=== PATIENT | female | born 2000 | race Caucasian/White ===

== ENCOUNTER 2023-11-10 11:17 | Outpatient (OUT) | payer OTHER, SELFPAY ==
--- NOTE | 2023-11-10 | CONS_ITS ---
CONSULTATION DATE: 11/10/2023 TO: [facility] in [place] CHIEF COMPLAINT: Includes severe lower back pain and bilateral hip pain and buttock pain. HISTORY OF PRESENT ILLNESS: Review of systems, past medical/surgical history were obtained and documented on the health questionnaire and is available upon request. She is a 23-year-old female who reports having had pain since her 32nd week of gestation. She reports, since that time, her pain has progressed to the point it has altered her quality of life, level of functioning and at times her sleep pattern. Increased pain with activities such as standing, walking and performing transitioning maneuvers. Climbing stair is also quite painful. She feels most comfortable in the semi-recumbent position. Denies any change in bowel and bladder habits or new sensorimotor changes in the lower extremities. CURRENT MEDICATION: Includes ibuprofen 800 mg at least daily to b.i.d. She reports this offers a marginal reduction in pain symptoms. She has been using this for at least the last four months with varying degrees of relief at best. Other medication includes Flexeril 10 mg t.i.d. EXAM: Her examination is notable for patient having no clinical radiculopathy or myelopathy involving the lower extremities. DTRs are symmetrical. She had a negative straight leg raise. She had severe pain with lumbar facet loading maneuvers, worse on the right than the left side. She also had dysesthesia and hyperesthesia along the distribution of the superior gluteal nerve with severe myofascial spasm of the gluteus medius muscle bilaterally. IMPRESSION: Our impression is patient appears to have chronic pain secondary to lumbosacral spondylosis #1, on the right side at L4-5, L5-S1, as well as superior gluteal nerve neuritis occurring bilaterally. RECOMMENDATIONS: I have recommended she consider a diagnostic right L4-5 and L5-S1 medial branch block under fluoroscopic guidance. I have discontinued her ibuprofen. I have trialed her on Mobic 15 mg daily. I have asked her to discontinue Flexeril and trial baclofen in the future. Pending her response to a change in medication, I have asked her to initiate aquatic therapy. As part of providing excellent, safe, comprehensive care, the following was completed at our patient's visit: 1. A medication reconciliation and review to ensure accurate knowledge of current/active medications, including asking our patients to inform us about any [id number] medications or herbal remedies/nutritional supplements/alternative remedies. 2. A review to specifically ensure our patients have had annual screening for: elevated body mass index (BMI, see intake chart for exact total), tobacco use, screening for depression, and screening for unhealthy alcohol use. When screening is concerning, patients are provided with education and the specific recommendation to discuss the concerning health issue and treatment options with their primary care provider. LAURA
== END 2023-11-10 11:18 | disposition home or self-care (01) ==
LOC: PM 11:19
PROVIDERS: Visit Provider Anesthesiology Pain Medicine
DX: M47.816 Spondylosis without myelopathy or radiculopathy, lumbar region (principal); G58.8 Other specified mononeuropathies
CPT/HCPCS: G0463

== ENCOUNTER 2023-11-24 08:19 | Day surgery (SDC) | payer OTHER, SELFPAY ==
[2023-11-24 08:41] VITALS: BP 124/75; PULSE 104; RESP 16; TEMP 36.2; O2SAT 98
[2023-11-24 08:46] LABS: HCG Qualitative NEGATIVE (NEGATIVE)
[2023-11-24 09:30] VITALS: BP 115/90; PULSE 85; RESP 18; O2SAT 97
[2023-11-24 09:31] VITALS: BP 115/59; PULSE 77; RESP 18; O2SAT 97
[2023-11-24] MEDS: BUPIVACAINE HCL 0.25% PF 25 MG/10 ML VIAL 3 ML INJ (09:36)
--- NOTE | 2023-11-24 10:34 | W.PM.PROCNOT ---
Date of procedure: 11/24/23 Pre-op diagnosis: Lumbar spondylosis Post-op diagnosis: same as pre-op Procedure: Right Lumbar 4/5, 5/sacral 1 medial branch block Under fluoroscopic guidance Solution injected: 2millilitersMarcaine 0.25% Anesthesia :none Immediate complications none Time out process compliant After informed consent obtained from the patient placed in the Prone proposition . area was prepped and draped in a sterile fashion using Cloraprep .25 gauge spinal needle inserted over each of the above mentioned target areas . [place] were directed towards the target under fluoroscopic guidance . after encountering each of the targets , no indication of intravascular intraneuronal or intrathecal needle tip placement. Then 0 .5 to 1 Milliliter was injected at each level. [place] removed postoperatively. patient transferred to recovery in stable condition to be discharged home after meeting criteria Anesthesia: Local Surgeon: Hugo Fofana Condition: stable
== END 2023-11-24 09:40 | disposition home or self-care (01) ==
LOC: SURGOUT 08:20
PROVIDERS: Visit Provider Anesthesiology Pain Medicine
DX: M47.816 Spondylosis without myelopathy or radiculopathy, lumbar region (principal)
CPT/HCPCS: 36415; 64493; 64494; 84703; J0665

== ENCOUNTER 2023-12-09 14:50 | Outpatient (OUT) | payer OTHER, SELFPAY ==
--- NOTE | 2023-12-09 15:16 | P.CN_ITS ---
Consult Note: HPI Data of Consult Patient: known to practice within the last 3 years Requesting Physician: Alessandra Roldan NP Primary Care Provider: Non-Staff Physician, MD Consult Narrative Reason for consult: f/u Narrative: Shamika Stratton a pleasant 23 year old female presents for evaluation of chronic low back pain. Pain 5/10 constant pain increasing with sitting standing and transitioning. Patient noticed improved ROM after right L4-5 L5-S1 facet medial branch block with 50% improvement in pain. Patient felt better but her tailbone continued to cause her pain. Upon exam today patient reports pain starting at base of lumbar spine radiating up into right shoulder blade. We discussed another cause for pain could be related to latissimus dorsi myofascial pain. Patient has found mild benefit to flexeril 10mg TID PRN, mobic 15mg daily, tylenol 500mg PRN. cc:: CC: Alessandra Roldan NP Review of Systems 2 ROS0 Status of ROS 10 or more systems reviewed and unremark able except as noted in history and below Musculoskeletal Reports: back pain PFSH PFSH Medical History (Updated 12/09/23 @ 15:22 by Alessandra Roldan NP) Depression ?F32.A - Depression, unspecified (ICD-10) Surgical History History of tonsillectomy ?Z90.89 - Acquired absence of other organs (ICD-10) Meds Home Medications and Allergies Home Medications Medication Instructions Recorded Confirmed Type acetaminophen 500 mg tablet 500 mg PO Q6H PRN pain 11/10/23 11/24/23 History (Tylenol Extra Strength) cyclobenzaprine 10 mg tablet 10 mg PO TID 11/10/23 11/24/23 History ibuprofen 800 mg tablet 800 mg PO TID PRN pain 11/10/23 11/24/23 History meloxicam 15 mg tablet 15 mg PO DAILY 11/10/23 11/24/23 History norgestimate 0.25 mg-ethinyl 1 tab PO DAILY 11/10/23 11/24/23 History estradiol 35 mcg tablet (Sprintec (28)) sertraline 50 mg tablet 50 mg PO DAILY 11/10/23 11/24/23 History Allergies Allergy/AdvReac Type Severity Reaction Status Date / Time No Known Drug Allergies Allergy Verified 11/24/23 08:39 Exam Constitutional Documenting provider has reviewed patient's vital signs: yes Common normals: no apparent distress, oriented x3, healthy appearing, alert and well nourished General appearance: cooperative HENMT Common normals: normocephalic, hearing grossly normal bilaterally and moist oral mucous membranes Head and scalp: normocephalic Eye Common normals: PERRL Pupil: PERRL Neck & C-Spine Common normals: full ROM General: normal visual inspection Chest Common normals: inspection of chest normal Respiratory Common normals: normal respiratory effort, no retractions and no use of accessory muscles Back & Pelvis Lumbar spine/lower back: normal to inspection, pain with ROM, paraspinal muscle tenderness and paraspinal muscle spasm Back image (female): 2 1. 2. Extremity Common normals: normal to inspection and full ROM Neuro Common normals: oriented x3, CN's II-XII intact bilaterally, moves all extremities, no focal motor deficits, no sensory deficits noted, deep tendon reflexes 2+ bilaterally and gait normal Sensorium/orientation: alert Motor exam: strength 5/5 throughout and no movement abnormalities noted Psych Common normals: mental status grossly normal, thought process normal, cooperative, affect normal, speech normal and activity/motor behavior normal Speech: normal speech Thought process: normal thought process Results Additional Findings Additional findings: I have checked an OARRS report on this patient today and there are no aberrancies noted in the prescribing history.?? A drug screen was completed and reviewed within the last year, and if there has not been a drug screen completed we ordered one today to monitor higher risk, state monitored pain medication use. As part of providing excellent, safe, comprehensive care, the following was completed at our patient's visit: 1. A medication reconciliation and review to ensure accurate knowledge of current/active medications, including asking our patients to inform us about any [id number] medications or herbal remedies/nutritional supplements/alternative remedies. 2. A review to specifically ensure our patients have had annual screening for: elevated body mass index (BMI), tobacco use, screening for depression, and screening for unhealthy alcohol use. When screening is concerning, patients are provided with education and the specific recommendation to discuss the concerning health issue and treatment options with their primary care provider. Assessment and Plan Assessment and Plan (1) Lumbar spondylosis: (2) Myofascial pain: (3) Strain of latissimus dorsi muscle: Plan stop flexeril start baclofen 5-10mg tabs BID-TID PRN myofascial pain start TENS unit, previously found benefit starting PT and dry needling consider TPIs in the future f/u 3 months, sooner if needed
== END 2023-12-09 14:51 | disposition home or self-care (01) ==
LOC: PM 14:51
PROVIDERS: Visit Provider Nurse Practitioner
DX: M47.816 Spondylosis without myelopathy or radiculopathy, lumbar region (principal); M79.18 Myalgia, other site; S39.012A Strain of muscle, fascia and tendon of lower back, initial encounter
CPT/HCPCS: G0463

== ENCOUNTER 2024-09-12 21:13 | Emergency (ER) | payer OTHER, MEDICAID, SELFPAY ==
[2024-09-12 21:18] VITALS: BP 126/84; PULSE 89; TEMP 36.9; O2SAT 100; BMI 41.6
--- NOTE | 2024-09-12 21:30 | ED_ITS ---
HPI HPI - Back Pain/Injury General Chief Complaint: Back Pain/Injury Stated Complaint: SEVERE BACK PAIN Time Seen by Provider: 09/12/24 21:19 Source: patient Mode of arrival: walk-in Limitations: no limitations History of Present Illness HPI Narrative: About 1.5hrs ago, the patient was reaching into a cabinet to get a sippy cup for her daughter when she felt pain along the right mid and lower back. She had chronic back pain for which she has been evaluated and treated by pain management in the past. No numbness, tingling, weakness or paralysis after this episode. She took tylenol without immediate relief. She works at [employer] and would like a work excuse. Related Data Home Medications ?Medication ?Instructions ?Recorded ?Confirmed acetaminophen 500 mg tablet 500 mg PO Q6H PRN pain 11/10/23 11/24/23 (Tylenol Extra Strength) cyclobenzaprine 10 mg tablet 10 mg PO TID 11/10/23 11/24/23 ibuprofen 800 mg tablet 800 mg PO TID PRN pain 11/10/23 11/24/23 meloxicam 15 mg tablet 15 mg PO DAILY 11/10/23 11/24/23 norgestimate 0.25 mg-ethinyl 1 tab PO DAILY 11/10/23 11/24/23 estradiol 35 mcg tablet (Sprintec (28)) sertraline 50 mg tablet 50 mg PO DAILY 11/10/23 11/24/23 Previous Rx's ?Medication ?Instructions ?Recorded methocarbamol 750 mg tablet 750 mg PO Q6H PRN pain #30 tabs 09/12/24 nabumetone 750 mg tablet 750 mg PO BID PRN pain #14 tabs 09/12/24 Allergies Allergy/AdvReac Type Severity Reaction Status Date / Time No Known Drug Allergies Allergy Verified 11/24/23 08:39 Opioid HPI Opioid Management Most Recent Opioid Data: Last Pain Scale 6 11/24/23 08:41 11/24/23 [facility] Medical History (Updated 09/12/24 @ 21:36 by Martell Haney) Depression ?F32.A - Depression, unspecified (ICD-10) Surgical History History of tonsillectomy ?Z90.89 - Acquired absence of other organs (ICD-10) Social History Little interest or pleasure in doing things: not at all Feeling down, depressed, or hopeless: not at all Exam Narrative Exam Narrative: General: Alert, no acute distress, patient resting comfortably Skin: warm, intact, no pallor noted Head: Normocephalic, atraumatic Respiratory: No acute distress. Clear lungs Abdomen: Normal bowel sounds, soft, nontender, no masses detected. No rebound, guarding, or rigidity noted. Back: inspection of the back shows no obvious deformity, no swelling, no ecchymosis, contusion, abrasion, swelling, erythema, fluctuance or induration. Tenderness noted to along the right paralumbar soft tissue lateral to the CVA and inferior to the right scapula. Straight leg raise on left is negative. Straight leg raise on right is negative. No CVA tenderness noted bilaterally. Musculoskeletal: moves both lower extremities without difficulty Neurological: AAOx4, normal sensory and motor observed. Psychiatric: Cooperative and interactive. Constitutional Vital Signs, click to edit/add: Last Vital Signs Temp 98.5 F 09/12/24 21:18 Pulse 89 09/12/24 21:18 Resp 18 09/12/24 21:18 BP 126/84 09/12/24 21:18 Pulse Ox 100 09/12/24 21:18 O2 Del Method Room Air 09/12/24 21:18 Course Vital Signs Vital signs: Vital Signs Temperature 98.5 F 09/12/24 21:18 Pulse Rate 89 09/12/24 21:18 Respiratory Rate 18 09/12/24 21:18 Blood Pressure 126/84 09/12/24 21:18 Pulse Oximetry 100 09/12/24 21:18 Oxygen Delivery Method Room Air 09/12/24 21:18 Temperature 98.5 F 09/12/24 21:18 Pulse Rate 89 09/12/24 21:18 Respiratory Rate 18 09/12/24 21:18 Blood Pressure 126/84 09/12/24 21:18 Pulse Oximetry 100 09/12/24 21:18 Oxygen Delivery Method Room Air 09/12/24 21:18 MDM - Back Pain/Injury MDM Narrative Medical decision making narrative: The patient's exam is consistent with a muscular strain of the posterolateral aspect of the lower half of her torso on the right. No need for imaging at this time She said that she no longer has any of the baclofen, Flexeril or other medications prescribed by pain management back in November and December 2023. The patient was given IM Toradol and oral Robaxin for being discharged home with prescriptions for Relafen and Robaxin to take at home. Medical Records Attestation: I reviewed the patient's medical records. Medical records narrative: November 24, 2003 the patient underwent injection of steroid by pain management physician. In December 2023 the patient saw the pain management nurse practitioner and had her Flexeril switched to baclofen. the patient suffers from chronic pain and has been evaluated by pain management numerous times over the last few years Discharge Plan Discharge Chief Complaint: Back Pain/Injury Clinical Impression: Strain of lumbar region Patient Disposition: Home, Self-Care Time of Disposition Decision: 21:36 Prescriptions / Home Meds: New nabumetone 750 mg tablet 750 mg PO BID PRN (Reason: pain) Qty: 14 0RF methocarbamol 750 mg tablet 750 mg PO Q6H PRN (Reason: pain) Qty: 30 0RF No Action cyclobenzaprine 10 mg tablet 10 mg PO TID acetaminophen [Tylenol Extra Strength] 500 mg tablet 500 mg PO Q6H PRN (Reason: pain) ibuprofen 800 mg tablet 800 mg PO TID PRN (Reason: pain) sertraline 50 mg tablet 50 mg PO DAILY norgestimate-ethinyl estradiol [Sprintec (28)] 0.25-35 mg-mcg tablet 1 tab PO DAILY meloxicam 15 mg tablet 15 mg PO DAILY Print Language: Yoruba Instructions: Low Back Strain (ED), Lower Back Exercises (ED) Referrals: Physician,Non-Staff, MD [Primary Care Provider] - 1 week
[2024-09-12] MEDS: KETOROLAC TROMETHAMINE 60 MG/2 ML VIAL IM (21:37)
[2024-09-12] MEDS: METHOCARBAMOL 500 MG TABLET PO (21:42)
== END 2024-09-12 21:51 | disposition home or self-care (01) ==
PROVIDERS: Emergency Provider Emergency Medicine; PCP Nurse Practitioner Family
DX: S39.012A Strain of muscle, fascia and tendon of lower back, initial encounter (principal); X50.1XXA Overexertion from prolonged static or awkward postures, initial encounter
CPT/HCPCS: 96372; 99284; J1885

== ENCOUNTER 2024-11-30 00:15 | Emergency (ER) | payer OTHER, SELFPAY ==
[2024-11-30 00:18] VITALS: BP 131/88; PULSE 90; TEMP 36.6; O2SAT 99; BMI 44.1
--- OUTSIDE RECORDS SUMMARY | 2024-11-30 00:22 | XMS_ITS | CCD ---
Author Organization [facility] Inform ion Partnership [facility] Care Team Providers Care Computerized [employer] Recorder Name Role Phone Rafita KIM, Marium Turk Primary Care Provider Unav ailable Unavailable Primary Care Provider Unavailabl e Luisa KIM, Jose Luis Tripp Primary Care Provider Juan SALOMON - Ashkan PARSON Primary Care Provid er ASHKAN KUNZ Primary Care Unavailable DENISSE GRIFFIN Attending Unavailabl e LUISA, JOSE LUIS TRIPP Primary Care Unavailable CHERISE SAGASTUME Attending Unavailable LUISA, JOSE LUIS TRIPP Primary Care Unavailable CHARLEEN QUINTERO Attending Unavailable LUISAJOSE LUIS Attending Unavailable LUISAJOSE LUIS Referring Unavailable LUISA, JOSE LUIS TRIPP Primary Care Unavailable LUISA, JOSE LUIS TRIPP Attending Unavailable LUISA, JOSE LUIS TRIPP Referring Unavailable LUISA, JOSE LUIS TRIPP Primary Care Unavailable LUISA, JOSE LUIS TRIPP Referring Unavailable LUISA, JOSE LUIS TRIPP Primary Care Unavailable ASHKAN KUNZ Referring Unavailable ASHKAN KUNZ Primary Care Unavailable LUISA, JOSE LUIS TRIPP Attending Unavailable LUISAJOSE LUIS Referring Unavailable LUISA, JOSE LUIS TRIPP Primary Care Unavailable LUISA, JOSE LUIS TRIPP Attending Unavailable LUISA, JOSE LUIS TRIPP Referring Unavailable LUISA, JOSE LUIS TRIPP Primary Care Unavailable LUISA, JOSE LUIS TRIPP Attending Unavailable LUISA, JOSE LUIS TRIPP Referring Unavailable LUISA, JOSE LUIS TRIPP Primary Care Unavailable Medications Current Medications Medication Drug Class(es) Dates Sig (Normalized) Sig (Original) Acetaminophen (5 sources) Start: 08-05-2023 Acetaminophen (TYLENOL PO) 08/05/2023 Active Start: 01-12-2023 End: 01-13-2023 1,000 mg, Oral, EVERY 8 HOUR S PRN, Starting on Thu01/13/23 at 1828, Until Discontinued, Other, Pain (1-10) Give in addition to any other pain medication ordered at same time for any pain indication. Maximum dose of acetaminophen is 4000mg from all sources in 24 hours. Alternate ibuprofen and acetaminophen every 4 hours. Start: 12-31-2022 acetaminophen (TYLENOL) tablet 1,000 mg baclofen 10 mg oral tablet (2 sources) gamma-Aminobutyric Acid-ergic Agonist Start: 12-10-2023 take 0.5-1 tablets by mouth three times daily as needed for muscle spasms baclofen (LIORESAL) 10 MG tablet TAKE 1/2 TO 1 (ONE-HALF TO ONE) TABLET BY MOUTH THREE TIMES DAILY NEEDED FOR SPASMS 12/10/2023 Active benzocaine 200 mg/ml / menthol 5 mg/ml topical spray (1 source) Standardized Chemical Allergen Start: 01-13-2023 apply 1 dose topically twice daily Topical, 2 TIMES DAILY, First dose on Thu01/13/23 at 2100 Apply to perineal area. Patient is capable and may self administer at bedside. cyclobenzaprine hydrochloride 10 mg oral tablet (3 sources) Muscle Relaxant Start: 09-21-2024 End: 10-01-2024 take 1 tablet by mouth three times daily as needed for muscle spasms cyclobenzaprine (FLEXERIL) 10 MG tablet Take 1 tablet by mouth 3 times daily as needed for Muscle spasms Do not drive or obtain a machinery while on this medication as it may cause drowsiness. 21 tablet 09/21/2024 10/01/2024 Active Start: 08-31-2023 End: 09-30-2023 take 1 tablet by mouth three times daily as needed for muscle spasms cyclobenzaprine (FLEXERIL) 10 MG tablet Take 1 tablet by mouth 3 times daily as needed for Muscle spasms 90 tablet 0 08/31/2023 09/30/2023 Active ethinyl estradiol 0.035 mg / norgestimate 0.25 mg oral tablet (6 sources) Progestin, Estrogen Start: 12-16-2023 take 1 tablet by mouth once daily norgestimate-ethinyl estradiol (ORTHO-CYCLEN, 28,) 0.25-35 MG-MCG per tablet Indications: Irregular menses Take 1 tablet by mouth daily 1 packet 12 12/16/2023 Active Start: 08-31-2023 take 1 tablet by oliver th once daily norgestimate-ethinyl estradiol (ORTHO-CYCLEN, 28,) 0.25-35 MG-MCG per tablet Indications: Irregular menses Take 1 tablet by mouth daily 1 packet 3 08/31/2023 Active Start: 09-16-2019 take 1 tablet by oliver th once daily norgestimate-ethinyl estradiol (ORTHO-CYCLEN, 28,) 0.25-35 MG-MCG per tablet Indications: Dysmenorrhea Take 1 tablet by mouth daily 1 packet 1 09/16/2019 Active ibuprofen 600 mg oral tablet (4 sources) Nonsteroidal Anti-inflammatory Drug Start: 09-21-2024 take 1 tablet by mouth three times daily as needed for pain ibuprofen (ADVIL;MOTRIN) 600 MG tablet Take 1 tablet by mouth 3 times daily as needed for Pain 30 tablet 09/21/2024 Active Start: 08-25-2023 take 1 tablet by oliver th every eight hours as needed for pain ibuprofen (ADVIL;MOTRIN) 800 MG tablet Take 1 tablet by mouth every 8 hours as needed for Pain 90 tablet 2 08/25/2023 Active Start: 01-13-2023 800 mg, Oral, EVERY 8 HOURS PRN, Starting on Thu01/13/23 at 1828, Until Discontinued, Pain Mild (1-3) Once tolerating PO, discontinue Toradol and begin ibuprofen 8 hours after the final dose of Toradol. Alternate ibuprofen and acetaminophen every 4 hours. lanolin 1000 mg/ml topical cream (1 source) Start: 01-13-2023 Topical, PRN, Dry Skin, nipple discomfort, Starting on Thu01/13/23 at 1828, loratadine 10 mg oral tablet (4 sources) Start: 08-26-2023 take 1 tablet by mouth once daily loratadine (CLARITIN) 10 MG tablet Take 1 tablet by mouth daily 30 tablet 08/26/2023 Active meloxicam 15 mg oral tablet (2 sources) Nonsteroidal Anti-inflammatory Drug Start: 03-23-2024 take 1 tablet by mouth once daily meloxicam (MOBIC) 15 MG tablet Take 1 tablet by mouth daily 30 tablet 03/23/2024 Active Misc. Devices (BREAST PUMP) MISC (20 sources) Start: 11-10-2022 Misc. Devices (BREAST PUMP) MISC Indications: disorder Medela double pump - plans 1 each 0 11/10/2022 Suspended Start: 11-10-2022 Misc. Devices (BREAST PUMP) MISC Indications: disorder Medela double pump - plans 1 each 0 11/10/2022 Active Start: 10-20-2022 Misc. Devices (BREAST PUMP) MISC Indications: disorder Medela double pump - plans 1 each 0 10/20/2022 Suspended Start: 10-20-2022 Misc. Devices (BREAST PUMP) MISC Indications: disorder Medela double pump - plans 1 each 0 10/20/2022 Active Vit-Fe Fumarate-FA ( 19 PO) (9 sources) Vit-Fe Fumarate-FA ( 19 PO) Take by mouth 0 Suspended Vit-Fe Fumarate-FA ( 19 PO) Take by mouth 0 Active promethazine hydrochloride 25 mg oral tablet (1 source) Phenothiazine Start: 06-05-2022 take 1 tablet by mouth every six hours as needed for nausea promethazine (PHENERGAN) 25 MG tablet Take 1 tablet by mouth every 6 hours as needed for Nausea 30 tablet 1 06/05/2022 Active sertraline 50 mg oral tablet (2 sources) Serotonin Reuptake Inhibitor Start: 07-13-2023 take 1 tablet by mouth once daily sertraline (ZOLOFT) 50 MG tablet Indications: Anxiety Take 1 tablet by mouth daily 30 tablet 1 07/13/2023 Active witch jessie 500 mg/ml medicated pad (1 source) Start: 01-13-2023 apply 1 dose topically twice daily Topical, 2 TIMES DAILY, First dose on Thu01/13/23 at 2100 Apply to perineal area. Patient is capable and may self administer at bedside. Completed/Discontinued Medications Medication Drug Class(es) Dates Sig (Normalized) Sig (Original) amoxicillin 250 mg oral capsule (2 sources) Penicillin-class Antibacterial Start: 08-17-2022 End: 08-17-2022 amoxicillin (AMOXIL) capsule 500 mg Start: 08-17-2022 End: 08-24-2022 take 1 capsule by mouth three times daily amoxicillin (AMOXIL) 500 MG capsule Take 1 capsule by mouth 3 times daily for 7 days 21 capsule 0 08/17/2022 08/24/2022 Active 2 ml butorphanol tartrate 2 mg/ml injection (1 source) Opioid Agonist/Antagonist Start: 01-12-2023 End: 01-13-2023 butorphanol (STADOL) injection 1 mg calcium chloride 0.0014 meq/ml / potassium chloride 0.004 meq/ml / sodium chloride 0.103 meq/ml / sodium lactate 0.028 meq/ml injectable solution (1 source) Start: 01-13-2023 End: 01-13-2023 lactated ringers IV soln infusion 1 ml carboprost 0.25 mg/ml injection (2 sources) Prostaglandin Analog Start: 01-12-2023 250 mcg, IntraMUSCular, PRN, Starting on Thu01/13/23 at 1828, Until Discontinued, bleeding May repeat every 15 minutes up to a cumulative maximum dose of 1000 mcg, at physician's request. diphenhydrAMINE hydrochloride 25 mg oral capsule (1 source) Histamine-1 Receptor Antagonist Start: 01-12-2023 End: 01-13-2023 diphenhydrAMINE (BENADRYL) capsule 25 mg docusate sodium 100 mg oral capsule (1 source) Start: 01-13-2023 take 100 mg by mouth twice daily as needed 100 mg, Oral, 2 TIMES DAILY PRN, Starting on Thu01/13/23 at 1828, Until Discontinued, Constipation Do not crush or break. 2 ml ketorolac tromethamine 30 mg/ml cartridge (1 source) Nonsteroidal Anti-inflammatory Drug, Cyclooxygenase Inhibitor Start: 09-21-2024 End: 09-21-2024 60 mg, IntraMUSCular, ONCE, 1 dose, On Thu09/21/24 at 2215, Do not administer for more than 5 days. 1 ml methylergonovine maleate 0.2 mg/ml injection (2 sources) Ergot Derivative Start: 01-12-2023 200 mcg, IntraMUSCular, PRN, Starting on Thu01/13/23 at 1828, Until Discontinued, Bleeding PRN for post- hemorrhage, if not hypertensive. miSOPROStol 0.1 mg oral tablet (3 sources) Prostaglandin E1 Analog Start: 01-13-2023 200 mcg, Buccal, PRN, Starting on 4/11/23 at 1828, Until Discontinued, For Post- Hemorrhage, Start: 01-13-2023 800 mcg, Recta l, PRN, 1 dose, Starting on Thu01/13/23 at 1828, Until Discontinued, Post- Hemorrhage Notify Physician prior to administration. Start: 01-12-2023 miSOPROStol (C YTOTEC) tablet 900 mcg miSOPROStol (CYTOTEC) pre-split tablet TABS 25 mcg (1 source) Start: 01-12-2023 End: 01-12-2023 miSOPROStol (CYTOTEC) pre-split tablet TABS 25 mcg 2 ml ondansetron 2 mg/ml injection (13 sources) Serotonin-3 Receptor Antagonist Start: 01-12-2023 End: 01-13-2023 ondansetron (ZOFRAN) injection 4 mg Start: 08-04-2022 End: 01-15-2023 take 1 tablet by mouth three times daily as needed for nausea ondansetron (ZOFRAN) 4 MG tablet Indications: Nausea and vomiting in Take 1 tablet by mouth 3 times daily as needed for Nausea or Vomiting 30 tablet 1 08/04/2022 01/15/2023 Discontinued (Stop Taking at Discharge) oxytocin (PITOCIN) 30 units in 500 mL infusion (2 sources) Start: 01-13-2023 End: 01-13-2023 oxytocin (PITOCIN) 30 units in 500 mL infusion Start: 01-12-2023 oxytocin (NUZHAT HENRIETTA) 30 units in 500 mL infusion 5 ml sodium chloride 9 mg/ml injection (3 sources) Start: 01-13-2023 take 1 dose intravenously twice daily 5-40 mL, IntraVENous, EVERY 12 HOURS SCHEDULED (2 times per day), First dose on Thu01/13/23 at 2100, Until Discontinued For Line Patency: Peripheral IV = 5 mL; Midline or Central Line = 10 mL/lumen. If following IV push medication, administer flush at same rate as the IV push. Flush volume is determined by type of infusion therapy being given. For non-viscous solutions use: Peripheral IV = 5 mL Midline or Central Line = 10 mL/lumen For viscous solutions (i.e. blood components, parenteral nutrition, contrast media, or after obtaining blood sample) use: Peripheral IV = 10 mL Midline or Central Line = 20 mL/lumen Start: 01-13-2023 IntraVENous, a t 5-250 mL/hr, PRN, if patient receiving piggyback infusions and maintenance fluids are not ordered OR KVO fluids to protect IV site / prevent frequent line interruptions/ long duration, Starting on Thu01/13/23 at 1828 For piggyback infusion, administer at same rate as piggyback for a total of 25 mL. Enter 25 mL into dose field and piggyback rate into rate field of order. If piggyback is infusing at a rate less than 100 mL/hr, enter 25 mL into dose field and 100 mL/hr into rate field of order. For KVO fluids, enter rate of 20 mL/hr or less into rate field of order. Start: 01-13-2023 take 5-40 mL intrave nously once as needed 5-40 mL, IntraVENous, PRN, Starting on Thu01/13/23 at 1828, Until Discontinued, Line Care, After every IV line use For Line Patency: Peripheral IV = 5 mL; Midline or Central Line = 10 mL/lumen. If following IV push medication, administer flush at same rate as the IV push. Flush volume is determined by type of infusion therapy being given. For non-viscous solutions use: Peripheral IV = 5 mL Midline or Central Line = 10 mL/lumen For viscous solutions (i.e. blood components, parenteral nutrition, contrast media, or after obtaining blood sample) use: Peripheral IV = 10 mL Midline or Central Line = 20 mL/lumen Problems Active Problems Problem Classification Problem Date Documented Da te Episodic/Chronic Anxiety disorders (2 sources) Mixed anxiety and depressive disorder; Translations: [Anxiety disorder, unspecified] Onset: 05-30-2024 05-30-2024 Chronic Cardiac dysrhythmias (2 sources) Palpitations; Translations: [Palpitations] Episodic Conditions associated with dizziness or vertigo (2 sources) Dizziness; Translations: [Dizziness and giddiness] Episodic Disorders of teeth and jaw (1 source) Toothache; Translations: [Other specified disorders of teeth and supporting structures] Episodic Menstrual disorders (1 source) Amenorrhea; Translations: [Amenorrhea, unspecified] Chronic Other complications of (1 source) Maternal obesity complicating , childbirth and the puerperium, antepartum; Translations: [Obesity complicating , first trimester] Chronic Other complications of (8 sources) Morbid obesity; Translations: [Obesity complicating , third trimester] Onset: 12-22-2022 12-22-2022 Chronic Other complications of (1 source) Complication of , childbirth and/or the puerperium; Translations: [Other specified related conditions, unspecified trimester] Episodic Other nervous system disorders (1 source) Other chronic pain; Translations: [Other chronic pain] Onset: 09-21-2024 Chronic Other nutritional; endocrine; and metabolic disorders (1 source) Morbid (severe) obesity due to excess calories; Translations: [Morbid (severe) obesity due to excess calories] Onset: 03-23-2024 Chronic Other nutritional; endocrine; and metabolic disorders (1 source) Body mass index (BMI) 45.0-49.9, adult; Translations: [Body mass index (BMI) 45.0-49.9, adult] Onset: 03-23-2024 Chronic Other upper respiratory infections (2 sources) Sore throat symptom; Translations: [Acute pharyngitis, unspecified] Episodic Residual codes; unclassified (1 source) History of syncope; Translations: [Personal history of other specified conditions] Episodic Residual codes; unclassified (1 source) Gestation period, 33 weeks; Translations: [33 weeks gestation of ] Episodic Residual codes; unclassified (1 source) Gestation period, 36 weeks; Translations: [36 weeks gestation of ] Episodic Superficial injury; contusion (1 source) Abrasion of finger; Translations: [Abrasion of unspecified finger, initial encounter] Episodic Unclassified (1 source) Low back pain, unspecified; Translations: [Low back pain, unspecified] Onset: 09-21-2024 Past or Other Problems Problem Classification Problem Date Documented Da te Episodic/Chronic Abdominal pain (7 sources) Finding of sensation of abdomen; Translations: [Unspecified abdominal pain] Onset: 01-04-2023 Episodic Administrative/social admission (1 source) Persons encountering health services in other specified circumstances; Translations: [Persons encountering health services in other specified circumstances] Onset: 03-23-2024 Episodic Early or threatened labor (20 sources) Uterine contractions present; Translations: [False labor, unspecified] Onset: 11-17-2022 Episodic Malaise and fatigue (4 sources) Fatigue; Translations: [Other fatigue] Onset: 05-30-2024 06-14-2024 Episodic Other circulatory disease (2 sources) Prehypertension; Translations: [Elevated blood-pressure reading, without diagnosis of hypertension] Onset: 05-30-2024 05-30-2024 Episodic Other connective tissue disease (2 sources) Nocturnal muscle cramp; Translations: [Cramp and spasm] Onset: 05-30-2024 05-30-2024 Episodic Other and delivery including normal (14 sources) Normal ; Translations: [Encounter for supervision of normal first , first trimester] Onset: 01-12-2023 Episodic Other skin disorders (2 sources) Senile melanoderma; Translations: [Other melanin hyperpigmentation] Onset: 05-30-2024 05-30-2024 Episodic Other skin disorders (2 sources) Xeroderma; Translations: [Xerosis cutis] Onset: 05-30-2024 05-30-2024 Episodic Residual codes; unclassified (8 sources) Gestation period, 37 weeks; Translations: [37 weeks gestation of ] Onset: 12-31-2022 Episodic Spondylosis; intervertebral disc disorders; other back problems (4 sources) Backache; Translations: [Dorsalgia, unspecified] Onset: 10-02-2023 05-30-2024 Episodic Viral infection (1 source) Viral infection, unspecified; Translations: [Viral infection, unspecified] Onset: 03-01-2024 Episodic NEGATED: Highlighted row has been ruled out!Unclassified (6 sources) No known active problems 06-12-2022 Results Test Name Value Interpretation Reference Range Facil ity XR LUMBAR SPINE (2-3 VIEWS)o n 09-21-2024 XR LUMBAR SPINE (2-3 VIEWS) EXAMINATION: 3 XRAY VIEWS OF THE LUMBAR SPINE 09/21/2024 9:51 pm COMPARISON: 10/02/2023. HISTORY: ORDERING SYSTEM PROVIDED HISTORY: acute on chronic back pain. No trauma TECHNOLOGIST PROVIDED HISTORY: acute on chronic back pain. No trauma FINDINGS: The lumbar vertebra are well aligned. There is mild disc space narrowing throughout the lower lumbar region which is unchanged. No fracture or subluxation is seen. The vertebral body height is well maintained throughout. There are sclerotic changes of the facets inferiorly with no pars defects seen. The pedicles are intact. 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 [facility] EXAMINATION: 3 XRAY VIEWS OF THE LUMBAR SPINE 09/21/2024 9:51 pm COMPARISON: 10/02/2023. HISTORY: ORDERING SYSTEM PROVIDED HISTORY: acute on chronic back pain. No trauma TECHNOLOGIST PROVIDED HISTORY: acute on chronic back pain. No trauma FINDINGS: The lumbar vertebra are well aligned. There is mild disc space narrowing throughout the lower lumbar region which is unchanged. No fracture or subluxation is seen. The vertebral body height is well maintained throughout. There are sclerotic changes of the facets inferiorly with no pars defects seen. The pedicles are intact. [facility] Gaudencio Ayala MD - 09/21/2024 EXAMINATION: 3 XRAY VIEWS OF THE LUMBAR SPINE 09/21/2024 9:51 pm COMPARISON: 10/02/2023. HISTORY: ORDERING SYSTEM PROVIDED HISTORY: acute on chronic back pain. No trauma TECHNOLOGIST PROVIDED HISTORY: acute on chronic back pain. No trauma FINDINGS: The lumbar vertebra are well aligned. There is mild disc space narrowing throughout the lower lumbar region which is unchanged. No fracture or subluxation is seen. The vertebral body height is well maintained throughout. There are sclerotic changes of the facets inferiorly with no pars defects seen. The pedicles are intact. 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 [facility] Radiology Study observation (narrative) [facility] XR SACRUM COCCYX (MIN 2 VIEW S)on 09-21-2024 XR SACRUM COCCYX (MIN 2 VIEWS) EXAMINATION: THREE XRAY VIEWS OF THE SACRUM/COCCYX 09/21/2024 9:51 pm COMPARISON: None. HISTORY: ORDERING SYSTEM PROVIDED HISTORY: acute on chronic back pain with no trauma TECHNOLOGIST PROVIDED HISTORY: acute on chronic back pain with no trauma FINDINGS: The sacrum and coccyx are intact. No fracture is seen. The sacral foramina are intact. The SI joints are unremarkable. The bones are well mineralized. No aggressive osseous lesion is seen. No erosions are seen. IMPRESSION: No abnormality seen. Interpreted by: Gaudencio Ayala MD Signed by: Gaudencio Ayala MD 09/21/24 Final result Normal [facility] XR Sacrum and Coccyx 2 Views on 09-21-2024 No abnormality seen. [facility] EXAMINATION: THREE XRAY VIEWS OF THE SACRUM/COCCYX 09/21/2024 9:51 pm COMPARISON: None. HISTORY: ORDERING SYSTEM PROVIDED HISTORY: acute on chronic back pain with no trauma TECHNOLOGIST PROVIDED HISTORY: acute on chronic back pain with no trauma FINDINGS: The sacrum and coccyx are intact. No fracture is seen. The sacral foramina are intact. The SI joints are unremarkable. The bones are well mineralized. No aggressive osseous lesion is seen. No erosions are seen. [facility] Gaudencio Ayala MD - 09/21/2024 EXAMINATION: THREE XRAY VIEWS OF THE SACRUM/COCCYX 09/21/2024 9:51 pm COMPARISON: None. HISTORY: ORDERING SYSTEM PROVIDED HISTORY: acute on chronic back pain with no trauma TECHNOLOGIST PROVIDED HISTORY: acute on chronic back pain with no trauma FINDINGS: The sacrum and coccyx are intact. No fracture is seen. The sacral foramina are intact. The SI joints are unremarkable. The bones are well mineralized. No aggressive osseous lesion is seen. No erosions are seen. IMPRESSION: No abnormality seen. [facility] Radiology Study observation (narrative) [facility] XR Sacrum and Coccyx 2 Views Ordered By: Gaudencio Ayala on 09-21-2024 Fabiola Arreaga [facility] [place] [employer] Work Phone: B12/Folate Panelon Cobalamin (Vitamin B12) [Mass/Vol] 527 pg/mL Normal 232-1245 [facility] Comment on above: Performed By: #### B 12FOL #### [address] [address] [employer]: Chriss Ortiz MD Folic Acid 18.0 ng/mL Normal 4.8-24.2 [facility] Comment on above: Performed By: #### B 12FOL #### [address] [address] [employer]: Chriss Ortiz MD Iron Binding Cap.on 06-15-20 24 % Fe Saturation 21 % Normal 20-55 [facility] Comment on above: Performed By: #### V D25, FEBC #### [address] [address] [employer]: Chriss Ortiz MD Iron [Mass/Vol] 78 ug/dL Normal 37-145 [facility] Comment on above: Performed By: #### V D25, FEBC #### [address] [address] [employer]: Chriss Ortiz MD Total Fe Binding Cap 371 ug/dL Normal 250-450 [facility] Comment on above: Performed By: #### V D25, FEBC #### [address] [address] [employer]: Chriss Ortiz MD Unbound Fe Bind Cap 293 ug/dL Normal 112-347 [facility] Comment on above: Performed By: #### V D25, FEBC #### [address] [address] [employer]: Chriss Ortiz MD Iron and TIBCon 06-15-2024 Iron [Mass/Vol] 78 ug/dL 37 - 145 ug/dL [facility] Iron binding capacity [Mass/Vol] 371 ug/dL 250 - 450 ug/dL [facility] Iron saturation [Mass fraction] 21 % 20 - 55 % [facility] UIBC 293 ug/dL 112 - 347 ug/dL [facility] No Panel Informationon 06-15 [facility] Vitamin B12 & Folateon 06-15 Cobalamin (Vitamin B12) [Mass/Vol] 527 pg/mL 232 - 1245 pg/mL [facility] Folate [Mass/Vol] 18.0 ng/mL 4.8 - 24.2 ng/mL [facility] Vitamin D 25 Hydroxyon 06-15 25-hydroxyvitamin D3 [Mass/Vol] 34.3 ng/mL 30.0 - 100.0 ng/mL [facility] Comment on above: Reference Range: Vitamin D status Range Deficiency <20 ng/mL Mild Deficiency 20-30 ng/mL Sufficiency 30-100 ng/mL Toxicity >100 ng/mL Vitamin D 25 OHon 06-15-2024 Vitamin D 25 OH 34.3 ng/mL Normal 30.0-100.0 [facility] Comment on above: Result Comment: Reference Range: Vitamin D status Range Deficiency <20 ng/mL Mild Deficiency 20-30 ng/mL Sufficiency 30-100 ng/mL Toxicity >100 ng/mL Performed By: #### V D25, FEBC #### [facility] [address] [place] [address] [employer]: Chriss Ortiz MD TSH With Reflex Ft4on 2023 TSH Qn 0.63 m[IU]/L [facility] TSH w/reflex to FT4on 2023 Thyroid Stim. Horm. 0.63 uIU/mL Normal 0.27-4.20 [facility] Comment on above: Performed By: #### T SHX #### [facility] [address] [place] [address] Waistline Joiner Lockstitch: Ajay Snyder MD Hemoglobin A1Con 03-23-2024 Glucose [Mass/Vol] 103 mg/dL Normal [facility] Comment on above: Result Comment: The ADA and AACC recommend providing the estimated average glucose result to permit better patient understanding of their HBA1c result. Performed By: #### G LYHGB #### [facility] [address] [place] [address] Waistline Joiner Lockstitch: Chriss Ortiz MD HbA1c (Bld) [Mass fraction] 5.2 % Normal 4.0-6.0 [facility] Comment on above: Performed By: #### G LYHGB #### [facility] [address] [place] [id number] Waistline Joiner Lockstitch: Chriss Ortiz MD Lipid Profileon 03-23-2024 Cholesterol [Mass/Vol] 143 mg/dL Normal 0-199 [facility] Comment on above: Result Comment: Cholesterol Guidelines: <200 Desirable 200-240 Borderline >240 Undesirable Performed By: #### L IPR ####[facility] [address] [place] [address] [phone] Director: Chriss Ortiz MD Cholesterol in HDL [Mass/Vol] 42 mg/dL Normal >40 [facility] Comment on above: Result Comment: HDL Guidelines: <40 Undesirable 40-59 Borderline >59 Desirable Performed By: #### L IPR ####[facility] [address] [place] [address] Lab Director: Chriss Ortiz MD Cholesterol in LDL [Mass/Vol] 80 mg/dL Normal 0-100 [facility] Comment on above: Result Comment: LDL Guidelines: <100 Desirable 100-129 Near to/above Desirable 130-159 Borderline >159 Undesirable Direct (measured) LDL and calculated LDL are not interchangeable tests. Performed By: #### L IPR ####[facility] [address] [place], [place] [phone] Director: Chriss Ortiz MD Cholesterol in VLDL [Mass/Vol] 21 mg/dL Normal [facility] Comment on above: Performed By: #### L IPR ####[facility] [address] [place] [address] Lab Director: Chriss Ortiz MD Cholesterol.total/C holesterol in HDL [Mass ratio] 3.0 {ratio} Normal [facility] Comment on above: Performed By: #### L IPR ####[facility] [place] [address] Lab Director: Chriss Ortiz MD Triglyceride [Mass/Vol] 107 mg/dL Normal <150 [facility] Comment on above: Result Comment: Triglyceride Guidelines: <150 Desirable 150-199 Borderline 200-499 High >499 Very high Based on AHA Guidelines for fasting triglyceride, July 2012. Performed By: #### L IPR ####[facility] [place], [place] [phone] Director: Chriss Ortiz MD Flu A/B Ag Detectionon 03-01 Flu A Ag Detection Negative Normal NEG [facility] Comment on above: Result Comment: for Influenza A Antigen Performed By: #### F LUABA #### [facility] [address] [place] [id number] Waistline Joiner Lockstitch: Ajay Snyder MD Flu B Ag Detection Negative Normal NEG [facility] Comment on above: Result Comment: for Influenza B Antigen. Performed By: #### F LUABA #### [facility] [address] [place] [id number] Waistline Joiner Lockstitch: Ajay Snyder MD [id number] 03-01-2024 SARS-CoV-2 (COVID-19) RNA PHILLIP+probe Ql (Unsp spec) Not detected Normal NOTDET [facility] Comment on above: Result Comment: Rapid NAAT: The specimen is NEGATIVE for SARS-CoV-2, the novel coronavirus associated with COVID-19. The ID NOW COVID-19 assay is designed to detect the virus that causes COVID-19 in patients with signs and symptoms of infection who are suspected of COVID-19. An individual without symptoms of COVID-19 and who is not shedding SARS-CoV-2 virus would expect to have a negative (not detected) result in this assay. Negative results should be treated as presumptive and, if inconsistent with clinical signs and symptoms or necessary for patient management, should be tested with an alternative molecular assay. Negative results do not preclude SARS-CoV-2 infection and should not be used as the sole basis for patient management decisions. Fact sheet for Healthcare Providers: https://www.fda.gov/media/953770/download Fact sheet for Patients: https://www.fda.gov/media/253105/download Methodology: Isothermal Nucleic Acid Amplification Performed By: #### C OVRB #### [facility] [address] [place] [address] Waistline Joiner Lockstitch: Ajay Snyder MD XR LUMBAR SPINE (2-3 VIEWS)o n 10-02-2023 XR LUMBAR SPINE (2-3 VIEWS) EXAMINATION: XRAY VIEWS OF THE LUMBAR SPINE 10/02/2023 10:28 am COMPARISON: None. HISTORY: ORDERING SYSTEM PROVIDED HISTORY: Chronic pain. Needed prior to MRI. TECHNOLOGIST PROVIDED HISTORY: Chronic pain. Needed prior to MRI. FINDINGS: Lumbar vertebral bodies are normal in height and alignment. No evidence of fracture. Visualized sacrum is unremarkable. Possible partial pars defect at L5. No significant degenerative changes. IMPRESSION: No acute osseous abnormalities. Interpreted by: Jerrell Chanel MD Signed by: Jerrell Chanel MD 10/02/23 Final result Normal [facility] Hemoglobinon 01-15-2023 Hemoglobin (Bld) [Mass/Vol] 10.7 g/dL Low 11.9 - 15.1 g/dL [facility] Interpretation and review of laboratory results Abnormal [facility] CBC auto differentialon 01-03 Absolute Eos # 0.06 [facility] Absolute Immature Granulocyte 0.10 [facility] Absolute Lymph # 1.99 [facility] Absolute [place] # 0.86 [facility] Basophils Absolute [facility] Basophils/100 WBC (Bld) 0 % 0 - 2 % [facility] Eosinophils/100 WBC (Bld) 1 % 1 - 4 % [facility] Hematocrit (Bld) [Volume fraction] 37.2 % 36.3 - 47.1 % [facility] Hemoglobin (Bld) [Mass/Vol] 12.4 g/dL 11.9 - 15.1 g/dL [facility] Immature granulocytes/100 WBC (Bld) 1 % High 0 [facility] Interpretation and review of laboratory results Abnormal [facility] Lymphocytes/100 WBC (Bld) 20 % Low 25 - 45 % [facility] MCH (RBC) [Entitic mass] 29.3 pg 25.2 - 33.5 pg [facility] MCHC (RBC) [Mass/Vol] 33.3 g/dL 28.4 - 34.8 g/dL [facility] MCV (RBC) [Entitic vol] 87.9 fL 82.6 - 102.9 fL [facility] Monocytes/100 WBC (Bld) 8 % 2 - 8 % [facility] NRBC Automated 0.0 0.0 per 100 WBC [facility] Platelet distribution width (Bld) [Ratio] 13.2 % 11.8 - 14.4 % [facility] Platelet mean volume (Bld) [Entitic vol] 10.7 fL 8.1 - 13.5 fL [facility] Platelets (Bld) [#/Vol] 261 10*3/uL [facility] RBC (Bld) [#/Vol] 4.23 10*6/uL 3.95 - 5.1 1 m/uL [facility] Segmented neutrophils/100 WBC (Bld) 70 % High 34 - 64 % [facility] Segs Absolute 7.19 [facility] WBC (Bld) [#/Vol] 10.2 10*3/uL [facility] DRUG SCREEN MULTI URINEon Amphetamine Screen, Ur Negative NEGATIVE [facility] Comment on above: (Positive cutoff 1000 ng/mL) Barbiturate Screen, Ur Negative NEGATIVE [facility] Comment on above: (Positive cutoff 200 ng/mL) Benzodiazepine Screen, Urine Negative NEGATIVE [facility] Comment on above: (Positive cutoff 200 ng/mL) Buprenorphine Urine Positive Abnormal NEGATIVE [facility] Comment on above: (Positive cutoff 5 ng/ml) Cannabinoid Scrn, Ur Negative NEGATIVE [facility] Comment on above: (Positive cutoff 50 ng/mL) Cocaine Metabolite, Urine Negative NEGATIVE [facility] Comment on above: (Positive cutoff 300 ng/mL) Fentanyl, Ur Negative NEGATIVE [facility] Comment on above: (Positive cutoff 5 ng/ml) Interpretation and review of laboratory results Abnormal [facility] Methadone Screen, Urine Negative NEGATIVE [facility] Comment on above: (Positive cutoff 300 ng/mL) Opiates, Urine Negative NEGATIVE [facility] Comment on above: (Positive cutoff 300 ng/mL) Oxycodone Screen, Ur Negative NEGATIVE [facility] Comment on above: (Positive cutoff 100 ng/mL) Phencyclidine, Urine Negative NEGATIVE [facility] D[facility] In Comment on above: (Positive cutoff 25 ng/mL) Test Information Assay provides medical screening only. The absence of expected drug(s) and/or metabolite(s) may indicate diluted or adulterated urine, limitations of testing or timing of collection. [facility] Comment on above: Testing for legal pu rposes should be confirmed by another method. To request confirmation of test result, please call the lab within 7 days of sample submission. [facility] TYPE AND SCREENon 01-12-2023 ABO/Rh Positive [facility] Drip In Arm Band Number [id number] [facility] Mine Expiration Date 01/15/2023,2359 [facility] Drip In Urinalysison 01-04-2023 Bilirubin Urine Negative NEGATIVE [facility] Project Playlist Color, UA Yellow Yellow [facility] Glucose Auto test strip (U) [Mass/Vol] Negative NEGATIVE [facility] Drip In Ketones (U) [Mass/Vol] Negative NEGATIVE [facility] Leukocyte esterase Auto test strip Ql (U) Negative NEGATIVE [facility] D[facility] In Nitrite Auto test strip Ql (U) Negative NEGATIVE [facility] D[facility] Protein (U) [Mass/Vol] 8.0 mg/dL 5.0 - 9.0 [facility] D[facility] In Protein (U) [Mass/Vol] Negative NEGATIVE [facility] Specific [place], UA 1.010 1.010 - 1.020 [facility] Turbidity UA Clear Clear [facility] Urine Hgb Negative NEGATIVE [facility] Urobilinogen, Urine Normal Normal [facility] Urinalysison 12-31-2022 Bilirubin Urine Negative NEGATIVE [facility] Color, UA Yellow Yellow [facility] Glucose Auto test strip (U) [Mass/Vol] Negative NEGATIVE [facility] Ketones (U) [Mass/Vol] Negative NEGATIVE [facility] Leukocyte esterase Auto test strip Ql (U) Negative NEGATIVE [facility] Nitrite Auto test strip Ql (U) Negative NEGATIVE [facility] Protein (U) [Mass/Vol] 6.5 mg/dL 5.0 - 9.0 [facility] Protein (U) [Mass/Vol] Negative NEGATIVE [facility] Specific [place], UA 1.020 1.010 - 1.020 [facility] Turbidity UA Clear Clear [facility] Urine Hgb Negative NEGATIVE [facility] Urobilinogen, Urine Normal Normal [facility] ECHO Complete 2D W Doppler W Coloron 12-19-2022 [facility] Transthoracic Echocardiography Report (TTE) Patient Name LB Date of Study 12/19/2022 SHAMIKA Jacobs Date of 2000 Gender Female Age 22 year(s) Race Room Number Height: 64 inch, 162.56 cm Corporate ID [id number] Weight: 233 pounds, 105.7 kg # Patient Acct [id number] BSA: 2.09 m^2 BMI: 39.99 # kg/m^2 MR # [id number] Boxing Instructor ChelseyNury Interpreting Physician Hemal Lomax Fellow Referring Nurse Practitioner Interpreting Referring Physician RAJWINDER Jose Fellow Type of Study TTE procedure:2D Echocardiogram, M-Mode, Doppler, Color Doppler. Procedure Date Date: 12/19/2022 Start: 02:57 PM Study Location: [facility] Indications:Palpitat ions. History / Tech. Comments: Palpitations PMHX: none Patient Status: Outpatient Height: 64 inches Weight: 233 pounds BSA: 2.09 m^2 BMI: 39.99 kg/m^2 BP: 122/76 mmHg CONCLUSIONS Summary Global left ventricular systolic function appears preserved with an estimated ejection fraction of 60%. The left ventricular cavity size is within normal limits and the left ventricular wall thickness is within normal limits. No definite specific wall motion abnormalities were identified. No significant valvular disease was seen. No previous studies were available for comparison. No significant cardiac cause of palpitations was identified from this study. Signature FINDINGS Left Atrium Left atrium is normal in size. Left Ventricle Global left ventricular systolic function appears preserved with an estimated ejection fraction of 60%. The left ventricular cavity size is within normal limits and the left ventricular wall thickness is within normal limits. No definite specific wall motion abnormalities were identified. Right Atrium Right atrium is normal in size. Right Ventricle Normal right ventricular size and function. Mitral Valve Normal mitral valve structure and function. Aortic Valve Normal aortic valve structure and function without stenosis or regurgitation. Tricuspid Valve Normal tricuspid valve structure and function. Pulmonic Valve The pulmonic valve is normal in structure. Pericardial Effusion No significant pericardial effusion is seen. Miscellaneous Normal aortic root diameter. No clear evidence of diastolic dysfunction was seen. M-mode / 2D Measurements & Calculations: LVIDd:3.81 cm(3.7 - 5.6 cm) Diastolic Volume:61.75 ml LVIDs:2.93 cm(2.2 - 4.0 cm) Systolic Volume:25.22 ml IVSd:1.08 cm(0.6 - 1.1 cm) Aortic Root:2.61 cm(2.0 - 3.7 cm) LVPWd:1.1 cm(0.6 - 1.1 cm) LA Dimension: 3.67 cm(1.9 - 4.0 cm) Fractional Shortenin.1 % LA volume/Index: 23 ml /11m^2 Calculated LVEF (%): 59.16 % AV Cusp Separation: 1.56 cm Mitral: Aortic Valve Area (P1/2-Time): 4.48 cm^2 Peak Velocity: 1.30 m/s Peak E-Wave: 0.61 m/s Mean Velocity: 0.96 m/s Peak A-Wave: 0.63 m/s Peak Gradient: 6.76 mmHg E/A Ratio: 0.97 Mean Gradient: 3.96 mmHg Peak Gradient: 1.47 mmHg Acceleration Time: 55.25 msec P1/2t: 49.14 msec AV VTI: 20.19 cm Diastology / Tissue Doppler Lateral Wall E' velocity:0.24 m/s Lateral Wall E/E':2.5 [facility] Hemal Lomax MD - 12/19/2022 [facility] Transthoracic Echocardiography Report (TTE) Patient Name LB Date of Study 12/19/2022 SHAMIKA Jacobs Date of 2000 Gender Female Age 22 year(s) Race Room Number Height: 64 inch, 162.56 cm Corporate ID [id number] Weight: 233 pounds, 105.7 kg # Patient Acct [id number] BSA: 2.09 m^2 BMI: 39.99 # kg/m^2 MR # [id number] Boxing Instructor Nury Barbosa Interpreting Physician Hemal Lomax Fellow Referring Nurse Practitioner Interpreting Referring Physician RAJWINDER Jose Fellow Type of Study TTE procedure:2D Echocardiogram, M-Mode, Doppler, Color Doppler. Procedure Date Date: 12/19/2022 Start: 02:57 PM Study Location: [facility] Indications:Palpitat ions. History / Tech. Comments: Palpitations PMHX: none Patient Status: Outpatient Height: 64 inches Weight: 233 pounds BSA: 2.09 m^2 BMI: 39.99 kg/m^2 BP: 122/76 mmHg CONCLUSIONS Summary Global left ventricular systolic function appears preserved with an estimated ejection fraction of 60%. The left ventricular cavity size is within normal limits and the left ventricular wall thickness is within normal limits. No definite specific wall motion abnormalities were identified. No significant valvular disease was seen. No previous studies were available for comparison. No significant cardiac cause of palpitations was identified from this study. Signature - - - - FINDINGS Left Atrium Left atrium is normal in size. Left Ventricle Global left ventricular systolic function appears preserved with an estimated ejection fraction of 60%. The left ventricular cavity size is within normal limits and the left ventricular wall thickness is within normal limits. No definite specific wall motion abnormalities were identified. Right Atrium Right atrium is normal in size. Right Ventricle Normal right ventricular size and function. Mitral Valve Normal mitral valve structure and function. Aortic Valve Normal aortic valve structure and function without stenosis or regurgitation. Tricuspid Valve Normal tricuspid valve structure and function. Pulmonic Valve The pulmonic valve is normal in structure. Pericardial Effusion No significant pericardial effusion is seen. Miscellaneous Normal aortic root diameter. No clear evidence of diastolic dysfunction was seen. M-mode / 2D Measurements & Calculations: LVIDd:3.81 cm(3.7 - 5.6 cm) Diastolic Volume:61.75 ml LVIDs:2.93 cm(2.2 - 4.0 cm) Systolic Volume:25.22 ml IVSd:1.08 cm(0.6 - 1.1 cm) Aortic Root:2.61 cm(2.0 - 3.7 cm) LVPWd:1.1 cm(0.6 - 1.1 cm) LA Dimension: 3.67 cm(1.9 - 4.0 cm) Fractional [place].1 % LA volume/Index: 23 ml /11m^2 Calculated LVEF (%): 59.16 % AV Cusp Separation: 1.56 cm Mitral: Aortic Valve Area (P1/2-Time): 4.48 cm^2 Peak Velocity: 1.30 m/s Peak E-Wave: 0.61 m/s Mean Velocity: 0.96 m/s Peak A-Wave: 0.63 m/s Peak Gradient: 6.76 mmHg E/A Ratio: 0.97 Mean Gradient: 3.96 mmHg Peak Gradient: 1.47 mmHg Acceleration Time: 55.25 msec P1/2t: 49.14 msec AV VTI: 20.19 cm Diastology / Tissue Doppler Lateral Wall E' velocity:0.24 m/s Lateral Wall E/E':2.5 [employer]dinner [facility] Drip In Work Phone: ECHO Complete 2D W Doppler W ColorOrdered By: Hemal Lomax on 12-19-2022 [facility] Drip In Work Phone: Urinalysison 12-19-2022 Bilirubin Urine Negative NEGATIVE [facility] Drip In Color, UA Yellow Yellow [facility] Glucose Auto test strip (U) [Mass/Vol] Negative NEGATIVE [facility] Ketones (U) [Mass/Vol] Negative NEGATIVE [facility] Drip In Leukocyte esterase Auto test strip Ql (U) Negative NEGATIVE [facility] Nitrite Auto test strip Ql (U) Negative NEGATIVE [facility] Protein (U) [Mass/Vol] 7.0 mg/dL 5.0 - 9.0 [facility] Protein (U) [Mass/Vol] Negative NEGATIVE [facility] Specific [place], UA 1.020 1.010 - 1.020 [facility] Turbidity UA Clear Clear [facility] Urine Hgb Negative NEGATIVE [facility] Urobilinogen, Urine Normal Normal [facility] Microscopic Urinalysison Crystals, UA 20 TO 50 CALCIUM OXALATE Abnormal None /HPF [facility] Epithelial Cells UA 5 TO 10 [facility] Interpretation and review of laboratory results Abnormal [facility] RBC clumps Auto (Urine sed) [#/Area] None [facility] WBC, UA 0 TO 2 [facility] Urinalysison 11-17-2022 Bilirubin Urine Negative NEGATIVE [facility] Drip In Color, UA Yellow Yellow [facility] Glucose Auto test strip (U) [Mass/Vol] Negative NEGATIVE [facility] Interpretation and review of laboratory results Abnormal [facility] Ketones (U) [Mass/Vol] 1+ Abnormal NEGATIVE [facility] Leukocyte esterase Auto test strip Ql (U) SMALL Abnormal NEGATIVE [facility] Nitrite Auto test strip Ql (U) Negative NEGATIVE [facility] Protein (U) [Mass/Vol] 6.0 mg/dL 5.0 - 9.0 [facility] Protein (U) [Mass/Vol] Negative NEGATIVE [facility] Specific [place], UA High 1.010 - 1.020 [facility] Turbidity UA Clear Clear [facility] Urine Hgb Negative NEGATIVE [facility] Urobilinogen, Urine Normal Normal [facility] Urinalysison 10-21-2022 Bilirubin Urine Negative NEGATIVE [facility] Color, UA Yellow Yellow [facility] Glucose, Ur Negative NEGATIVE [facility] Interpretation and review of laboratory results Abnormal [facility] Ketones Ql (U) Negative NEGATIVE [facility] Leukocyte esterase Test strip Ql (U) Negative NEGATIVE [facility] Nitrite, Urine Negative NEGATIVE [facility] pH, UA 7.5 5.0 - 9.0 [facility] Protein, UA Negative NEGATIVE [facility] Specific [place], UA 1.015 1.010 - 1.020 [facility] Turbidity UA SLIGHTLY CLOUDY Abnormal Clear [facility] Urine Hgb Negative NEGATIVE [facility] Urobilinogen, Urine Normal Normal [facility] Urinalysis, Microon 10-21-19 23 Amorphous, UA 2+ Abnormal None [facility] Bacteria, UA 1+ Abnormal None [facility] Epithelial Cells UA 0 TO 2 [facility] Interpretation and review of laboratory results Abnormal [facility] RBC, UA None [facility] WBC, UA 0 TO 2 [facility] COVID-19on 08-06-2022 SARS-CoV-2 (COVID-19) RNA PHILLIP+probe Ql (Unsp spec) [facility] SARS-CoV-2 (COVID-19) RNA PHILLIP+probe Ql (Unsp spec) Not detected Not Detected [facility] Comment on above: The specimen is NEGATIVE for SARS-CoV-2, the novel coronavirus associated with COVID-19. A negative result does not rule out COVID-19. Suresh SARS-CoV-2 for use on the [employer]uresh 6800/8800 Systems is a real-time RT-PCR test intended for the qualitative detection of nucleic acids from SARS-CoV-2 in clinician-collected nasal, nasopharyngeal, and oropharyngeal swab specimens from individuals who meet COVID-19 clinical and/or epidemiological criteria. Suresh SARS-CoV-2 is for use only under Emergency Use Authorization (EUA) in laboratories certified under Clinical Laboratory Improvement Amendments of 1988 (CLIA), 42 U.S.C. 263a, that meet requirements to perform high or moderate complexity tests. An individual without symptoms of COVID-19 and who is not shedding SARS-CoV-2 virus would expect to have a negative (not detected) result in this assay. Fact sheet for Healthcare Providers: https://www.fda.gov/media/869462/download Fact sheet for Patients: https://www.fda.gov/media/471006/download METHODOLOGY: RT-PCR Source .NASOPHARYNGEAL SWAB [facility] Rapid Influenza A/B Antigens on 08-05-2022 Flu A Antigen Negative NEGATIVE [facility] Comment on above: for Influenza A Anti gen Flu B Antigen Negative NEGATIVE [facility] Comment on above: for Influenza B Anti gen. [facility] HIV Screenon 06-13-2022 HIV Ag/Ab Non-Reactive NONREACTIVE [facility] Comment on above: No laboratory eviden ce of HIV infection. If acute HIV infection is suspected, consider testing for HIV-1 RNA. [facility] Profile Ion 022 Absolute Eos # 0.08 [facility] Absolute Immature Granulocyte 0.04 [facility] Absolute Lymph # 2.62 [facility] Absolute [place] # 0.83 [facility] Basophils Absolute [facility] Basophils/100 WBC (Bld) 0 % 0 - 2 % [facility] Eosinophils/100 WBC (Bld) 1 % 1 - 4 % [facility] Hematocrit (Bld) [Volume fraction] 41.3 % 36.3 - 47.1 % [facility] Hemoglobin (Bld) [Mass/Vol] 14.0 g/dL 11.9 - 15.1 g/dL [facility] Hepatitis B Surface Ag Non-Reactive NONREACTIVE [facility] Immature granulocytes/100 WBC (Bld) 0 % 0 [facility] Interpretation and review of laboratory results Abnormal [facility] Lymphocytes/100 WBC (Bld) 24 % Low 25 - 45 % [facility] MCH (RBC) [Entitic mass] 31.3 pg 25.2 - 33.5 pg [facility] MCHC (RBC) [Mass/Vol] 33.9 g/dL 28.4 - 34.8 g/dL [facility] MCV (RBC) [Entitic vol] 92.4 fL 82.6 - 102.9 fL [facility] Monocytes/100 WBC (Bld) 8 % 2 - 8 % [facility] NRBC Automated 0.0 0.0 per 100 WBC [facility] Platelet distribution width (Bld) [Ratio] 12.3 % 11.8 - 14.4 % [facility] Platelet mean volume (Bld) [Entitic vol] 10.9 fL 8.1 - 13.5 fL [facility] Platelets (Bld) [#/Vol] 258 10*3/uL [facility] RBC (Bld) [#/Vol] 4.47 10*6/uL 3.95 - 5.1 1 m/uL [facility] Rubella virus IgG Ql (S) 70.4 IU/mL [facility] Comment on above: REFERENCE RANGE: <5.0 NON-REACTIVE (non-immune) 5.0 TO 9.9 EQUIVOCAL >=10.0 REACTIVE (immune) Segmented neutrophils/100 WBC (Bld) 67 % High 34 - 64 % [facility] Segs Absolute 7.20 [facility] T. pallidum, IgG Non-Reactive NONREACTIVE [facility] Comment on above: T. pallidum antibodies are not detected. There is no serological evidence of infection with T. pallidum (early primary syphilis cannot be excluded). Retest in 2-4 weeks if syphilis is clinically suspect. WBC (Bld) [#/Vol] 10.8 10*3/uL [facility] Hepatitis C Antibodyon 06-12 Hepatitis C Ab Non-Reactive NONREACTIVE [facility] Comment on above: The hepatitis C procedure used in our laboratory is a Chemiluminescent test specific for three recombinant HCV antigens. A negative anti-HCV result indicates that the antibodies to hepatitis C virus are not present at this time. Individuals with reactive anti-HCV should be considered infected and infectious until proven otherwise. Confirmation of all equivocal or reactive results is recommended by ordering HCV RNA by PCR. [facility] TYPE AND SCREENon 0 06-12-2022 ABO/Rh Positive [facility] Urine Drug Screen, Comprehen siveon 06-12-2022 Amphetamine Screen, Ur Negative NEGATIVE [facility] Barbiturate Screen, Ur Negative NEGATIVE [facility] Benzodiazepine Screen, Urine Negative NEGATIVE [facility] Buprenorphine Urine Negative NEGATIVE [facility] Cannabinoid Scrn, Ur Positive Abnormal NEGATIVE [facility] Cocaine Metabolite, Urine Negative NEGATIVE [facility] Interpretation and review of laboratory results Abnormal [facility] Methadone Screen, Urine Negative NEGATIVE [facility] Methamphetamine, Urine Negative NEGATIVE [facility] Opiates, Urine Negative NEGATIVE [facility] Oxycodone Screen, Ur Negative NEGATIVE [facility] Phencyclidine, Urine Negative NEGATIVE [facility] Propoxyphene, Urine Negative NEGATIVE [facility] Tricyclic Antidepressants, Urine Negative NEGATIVE [facility] Comment on above: Drug screen results are to be used for medical purposes only. All positive results are unconfirmed. Testing for employment or legal uses should be sent to a reference laboratory for confirmation. [facility] XR FINGER LEFT (MIN 2 VIEWS) Ordered By: Renny Lispcomb on 04-20-2021 Normal examination. [employer] Work Phone: EXAMINATION: THREE XRAY VIEWS OF THE LEFT FINGERS 04/20/2021 1:23 am COMPARISON: None. HISTORY: ORDERING SYSTEM PROVIDED HISTORY: Index finger. R/O foreign body. Minimal laceration. TECHNOLOGIST PROVIDED HISTORY: Index finger. R/O foreign body. Minimal laceration. FINDINGS: No fracture, dislocation or joint abnormality is identified. Bone density and soft tissues are normal. No radiopaque foreign body identified. [employer] Work Phone: Joselo, M[employer] Incoming Radiant Results From [employer] - 04/20/2021 1:42 AM EDT EXAMINATION: THREE XRAY VIEWS OF THE LEFT FINGERS 04/20/2021 1:23 am COMPARISON: None. HISTORY: ORDERING SYSTEM PROVIDED HISTORY: Index finger. R/O foreign body. Minimal laceration. TECHNOLOGIST PROVIDED HISTORY: Index finger. R/O foreign body. Minimal laceration. FINDINGS: No fracture, dislocation or joint abnormality is identified. Bone density and soft tissues are normal. No radiopaque foreign body identified. IMPRESSION: Normal examination. [employer] Work Phone: [employer] Work Phone: Vital Signs Date Time Vital Sign Value [facility] Clin[facility] 09-21-2024 21:29-0500 Body height 165.1 cm Denisse Griffin MD [facility] 09-21-2024 21:29-0500 Body mass index (BMI) [Ratio] 41.6 kg/m2 Denisse Griffin MD Work Phone: [facility] 09-21-2024 21:29-0500 Body temperature 98.29 [degF] Denisse Griffin MD Work Phone: [facility] 09-21-2024 21:29-0500 Body weight 113.4 kg Denisse Griffin MD Work Phone: [facility] 09-21-2024 21:29-0500 Diastolic blood pressure 69 mm[Hg] Denisse Griffin MD Work Phone: [employer] 09-21-2024 21:29-0500 Heart rate 81 /min Denisse Griffin MD Work Phone: [facility] 09-21-2024 21:29-0500 Respiratory rate 16 /min Denisse Griffin MD Work Phone: [facility] 09-21-2024 21:29-0500 SaO2% (BldA) [Mass fraction] 100 % Denisse Griffin MD Work Phone: [facility] 09-21-2024 21:29-0500 Systolic blood pressure 100 mm[Hg] Denisse Griffin MD Work Phone: [facility] 01-15-2023 07:50-0400 Body temperature 97.7 [degF] Danielle Powell APRN - CN Work Phone: [facility] 01-15-2023 07:50-0400 Diastolic blood pressure 79 mm[Hg] Danielle Powlel APRN - CNM Work Phone: [facility] 01-15-2023 07:50-0400 Heart rate 110 /min Danielle Powell APRN - CNM Work Phone: [facility] 01-15-2023 07:50-0400 Respiratory rate 18 /min Danielle Powell APRN - CN Work Phone: [facility] 01-15-2023 07:50-0400 Systolic blood pressure 130 mm[Hg] Danielle Powell APRN - CNM Work Phone: [facility] 01-14-2023 18:16-0400 SaO2% (BldA) [Mass fraction] 100 % Danielle Powell APRN - CNM Work Phone: [facility] 01-04-2023 21:52-0400 Body temperature 97.81 [degF] Bhargav Lee DO Work Phone: [facility] 01-04-2023 21:52-0400 Diastolic blood pressure 78 mm[Hg] Bhargav D'Abreau DO Work Phone: [facility] 01-04-2023 21:52-0400 Heart rate 99 /min Bhargav D'Abreau DO Work Phone: [facility] 01-04-2023 21:52-0400 Respiratory rate 18 /min Bhargav D'Abreau DO Work Phone: [facility] 01-04-2023 21:52-0400 Systolic blood pressure 134 mm[Hg] Bhargav D'Abreau DO Work Phone: [facility] 12-31-2022 19:50-0400 Body temperature 97.81 [degF] Carmen Floro [employer] - CNM Work Phone: [facility] 12-31-2022 19:50-0400 Diastolic blood pressure 75 mm[Hg] Carmen Floro [employer] - CNM Work Phone: [facility] 12-31-2022 19:50-0400 Heart rate 86 /min Carmen Danyelleo [employer] MA[employer]GER - CNM Work Phone: [facility] 12-31-2022 19:50-0400 Respiratory rate 16 /min Carmen Danyelleo [employer] MA[employer]GER - CNM Work Phone: [facility] 12-31-2022 19:50-0400 Systolic blood pressure 128 mm[Hg] Carmen Danyelleo [employer] MA[employer]GER - CNM Work Phone: [facility] 12-19-2022 22:54-0400 Body temperature 98.29 [degF] Danielle Powell [employer]GER - CNM Work Phone: [facility] 12-19-2022 22:54-0400 Diastolic blood pressure 81 mm[Hg] Danielle Powell [employer]GER - CNM Work Phone: [facility] [employer] 12-19-2022 22:54-0400 Heart rate 85 /min Danielle Powell [employer]GER - CNM Work Phone: [facility] [employer] [facility] 12-19-2022 22:54-0400 Respiratory rate 16 /min Danielle Powell [employer]GER - CNM Work Phone: [facility] [employer] 12-19-2022 22:54-0400 Systolic blood pressure 128 mm[Hg] Danielle Powell [employer]GER - CN Work Phone: [facility] [employer] 08-17-2022 17:22-0500 Body temperature 97.5 [degF] Taylor Ezekiel DO Work Phone: [facility] [employer] 08-17-2022 17:22-0500 Diastolic blood pressure 70 mm[Hg] Taylor Ezekiel DO Work Phone: [facility] [employer] 08-17-2022 17:22-0500 Heart rate 99 /min Taylor Ezekiel DO Work Phone: [facility] [employer] 08-17-2022 17:22-0500 Respiratory rate 16 /min Taylor Ezekiel DO Work Phone: [facility] [employer] 08-17-2022 17:22-0500 SaO2% (BldA) [Mass fraction] 98 % Taylor Ezekiel DO Work Phone: [facility] [employer] 08-17-2022 17:22-0500 Systolic blood pressure 133 mm[Hg] Taylor Ezekiel DO Work Phone: [employer] 04-20-2021 02:08-0400 Diastolic blood pressure 54 mm[Hg] Renny Lipscomb MD Work Phone: [employer] Work Phone: 04-20-2021 02:08-0400 Heart rate 92 /min Renny Lipscomb MD Work Phone: [employer] Work Phone: 04-20-2021 02:08-0400 Respiratory rate 16 /min Renny Lipscomb MD Work Phone: [employer] Work Phone: 04-20-2021 02:08-0400 SaO2% (BldA) [Mass fraction] 97 % Renny Lipscomb MD Work Phone: [employer] Work Phone: 04-20-2021 02:08-0400 Systolic blood pressure 132 mm[Hg] Renny Lipscomb MD Work Phone: [employer] Work Phone: 04-20-2021 01:15-0400 Body height 162.6 cm Renny Lipscomb MD Work Phone: [employer] Work Phone: 04-20-2021 01:15-0400 Body mass index (BMI) [Ratio] 34.33 kg/m2 Renny Lipscomb MD Work Phone: [employer] Work Phone: 04-20-2021 01:15-0400 Body temperature 97.2 [degF] Renny Lipscomb MD Work Phone: [employer] Phone: 04-20-2021 01:15-0400 Body weight 90.72 kg Renny Lipscomb MD Work Phone: [employer] Work Phone: Encounters Encounter Date Encounter Type Care Provider Facility Start: 09-21-2024 End: 09-21-2024 Emergency department patient visit Denisse Griffin MD Work Phone: [facility] Emergency Department Comment on above: Acute exacerbation o f chronic low back pain (Primary Dx) Start: 06-14-2024 End: 06-14-2024 [facility] Start: 06-14-2024 End: 06-14-2024 Subsequent hospital visit by physician Ashkan Dailey CNP Work Phone: [facility] Laboratory Comment on above: Other fatigue Start: 03-23-2024 End: 03-23-2024 ambulatory [facility] Start: 03-01-2024 End: 03-01-2024 Emergency department patient visit [facility] Start: 10-09-2023 ambulatory [facility] Start: 10-06-2023 End: 10-06-2023 ambulatory [facility] Start: 10-06-2023 ambulatory [facility] Start: 10-02-2023 End: 10-02-2023 Emergency department patient visit [facility] Start: 10-01-2023 End: 10-01-2023 ambulatory [facility] Start: 09-29-2023 End: 09-29-2023 ambulatory [facility] Start: 09-25-2023 End: 09-25-2023 Subsequent hospital visit by physician Jose Luis Moran MD Work Phone: [facility] Physical Therapy Start: 09-18-2023 End: 09-18-2023 Subsequent hospital visit by physician Jose Luis Moran MD Work Phone: [facility] Physical Therapy Comment on above: Arrived Start: 01-12-2023 End: 01-15-2023 Evaluation and management of inpatient Danielle Powell UMM - CNM Work Phone: [facility] Labor and Delivery Start: 01-04-2023 End: 01-05-2023 Subsequent hospital visit by physician Bhargav Lee DO Work Phone: [facility] Labor and Delivery Start: 12-31-2022 End: 12-31-2022 Subsequent hospital visit by physician Carmen Angel APRN - CNM Work Phone: [facility] Labor and Delivery Start: 12-22-2022 End: 12-22-2022 [facility] Comment on above: 36 weeks gestation o f Start: 12-19-2022 End: 12-20-2022 Subsequent hospital visit by physician Danielle Powell [employer]GER - CNM Work Phone: [facility] Labor and Delivery Start: 12-19-2022 End: 12-19-2022 Subsequent hospital visit by physician [facility] Echo Room [facility] Echocardiography Comment on above: Palpitation; Dizzy; History of syncope in childhood; Tachycardia; 33 weeks gestation of Start: 11-17-2022 End: 11-17-2022 Subsequent hospital visit by physician Danielle Powell [employer] MANAGER - CNM Work Phone: [facility] Labor and Delivery Start: 10-27-2022 End: 10-27-2022 Subsequent hospital visit by physician [facility] Sm[employer] [facility] EKG Comment on above: Dizziness Start: 10-21-2022 End: 10-21-2022 [facility] Comment on above: Abdominal cramping a ffecting Start: 08-17-2022 End: 08-17-2022 Emergency department patient visit Taylor Falcon Work Phone: [facility] ED Comment on above: Pain, dental (Primar y Dx) Start: 08-05-2022 End: 08-05-2022 [facility] Covid Screening Schedule [facility] Covid Screening Comment on above: Acute nasopharyngiti s Start: 08-04-2022 End: 08-04-2022 Subsequent hospital visit by physician Marium Eller MD [facility] Laboratory Comment on above: Sore throat Start: 06-12-2022 End: 06-12-2022 Subsequent hospital visit by physician Marium Eller MD [facility] Laboratory Comment on above: Encounter for superv ision of normal first in first trimester; Amenorrhea; Positive urine test; Obesity affecting in first trimester Start: 04-20-2021 End: 04-20-2021 Emergency department patient visit Renny Lipscomb MD Work Phone: [facility] ED Comment on above: Abrasion of finger, initial encounter (Primary Dx) Procedures Date Procedure Procedure Detail Performing Clinician Start: 09-21-2024 End: 09-21-2024 Radex spine lumbosacral 2/3 views Denisse Griffin MD Work Phone: Start: 06-14-2024 End: 06-14-2024 25 hydroxy includes fractions if performed Ashkan Wang Juan [employer] MANAGER - DIVISION SERVICE MANAGER Work Phone: Start: 06-14-2024 VITAMIN B12 & FOLATE Sh randy Wang Juan [employer] DIVISION MANAGER - DIVISION SERVICE MANAGER Work Phone: Start: 01-14-2023 Blood count hemoglobin Danielle Powell [employer] MANAGER - CN Work Phone: Start: 01-12-2023 Antibody screen Danielle hart [employer] MANAGER - CN Work Phone: Start: 01-12-2023 Blood count complete auto&auto difrntl wbc Danielle Powell [employer] MANAGER - CN Work Phone: Start: 01-12-2023 Blood typing serologic abo Danielle Powell [employer] MANAGER - CN Work Phone: Start: 01-12-2023 Drug tst prsmv instr mnt chem analyzers pr date Danielle Powell [employer] MANAGER - CN Work Phone: Start: 01-04-2023 Urnls dip stick/tabl et rgnt auto w/o microscopy Bhargav Jesus ELDRIDGE Work Phone: Start: 12-31-2022 Urnls dip stick/tabl et rgnt auto w/o microscopy Carmen Angel [employer] MANAGER - CN Work Phone: Start: 12-19-2022 Urnls dip stick/tabl et rgnt auto w/o microscopy Danielle Powell [employer] MANAGER - CN Work Phone: Start: 12-19-2022 Echo tthrc r-t 2d w/wom-mode compl spec&colr d Jolynn Whalen PA-C Work Phone: Start: 11-17-2022 Urinalysis microscop ic only Estrellita Logan [employer] MANAGER - CN Work Phone: Start: 11-17-2022 Urnls dip stick/tabl et rgnt auto w/o microscopy Estrellitaaicha Logan [employer] MANAGER - CN Work Phone: Start: 10-21-2022 Urnls dip stick/tabl et reagent auto microscopy Danielle Powell [employer] MANAGER - CN Work Phone: Start: 10-21-2022 Urnls dip stick/tabl et rgnt auto w/o microscopy Danielle Powell [employer] MANAGER - CN Work Phone: Start: 08-05-2022 COVID-19 Danielle yip Powell [employer] MANAGER - CN Work Phone: Start: 08-05-2022 Iaadiadoo influenza Tatiana Huggins Andre [employer] MANAGER - CN Work Phone: Start: 07-07-2022 Microscopic observat ion [Identifier] in Cervix by Cyto stain Marium Eller MD Start: 06-12-2022 Antibody screen Marium Eller MD Start: 06-12-2022 End: 06-12-2022 Antibody hiv-1&hiv-2 single result Danielle Huggins Andre [employer] MANAGER - CN Work Phone: Start: 06-12-2022 Drug screen, qualitate/multi Danielle Powell [employer] MANAGER - CN Work Phone: Start: 04-20-2021 Radex fingr minimum 2 views Renny Lipscomb MD Work Phone: Plan of Treatment Date Care Activity Detail Author Start: 07-07-2025 Screening for malign ant neoplasm of cervix Pap smear [facility] Start: 05-30-2025 DTaP/Tdap/Td vaccine (7 - Td or Tdap) DTaP/Tdap/Td vaccine (7 - Td or Tdap) [facility] Comment on above: Postponed from 10/26 (Patient Refused) Start: 05-30-2025 Hepatitis B vaccine (3 of 3 - 3-dose series) Hepatitis B vaccine (3 of 3 - 3-dose series) [facility] Comment on above: Postponed from 09/24 (Not Indicated) Start: 05-30-2025 Influenza vaccination Flu vaccine (# 1) [facility] Comment on above: Postponed from 05/05 (Patient Refused) Start: 05-30-2025 Pneumococcal 0-64 ye ars Vaccine (1 of 2 - PCV) Pneumococcal 0-64 years Vaccine (1 of 2 - PCV) [facility] Comment on above: Postponed from 03/25 (Patient Refused) Start: 12-20-2024 End: 12-20-2024 Patient encounter procedure 12/20/2024 2:15 PM EDT Office Visit [facility] [address] [place] [address] Danielle Powell, [employer] DIV[employer] MANAGER - CN [address] [place] [address] PAP [facility] Comment on above: PAP Start: 12-06-2024 Depression [facility] Start: 10-11-2024 End: 10-11-2024 Patient encounter procedure 10/11/2024 3:00 PM EST Office Visit [facility] [address] [place] [address] Ashkan Kunz, [employer] DIVISION MANAGER - DIVISION SERVICE MANAGER [address] [place] [address] 3 month [facility] Comment on above: 3 month Start: 07-24-2024 HPV vaccine (2 - 2-d ose series) HPV vaccine (2 - 2-dose series) [facility] Comment on above: Postponed from 09/24 (Not Indicated) Start: 07-12-2024 Depression Screen Depression Screen [facility] Start: 07-05-2024 End: 07-05-2024 Patient encounter procedure 07/05/2024 3:00 PM EDT Office Visit [facility] [address] [place] [address] Ashkan Kunz, [employer] DIVISION MANAGER - DIVISION SERVICE MANAGER [address] [place] [address] 1 month [facility] Comment on above: 1 month Start: 06-05-2024 COVID-19 Vaccine ( season) COVID-19 Vaccine ( season) [facility] Start: 12-16-2023 End: 12-16-2023 Patient encounter procedure 12/16/2023 3:15 PM EDT Office Visit [facility] [address] [place] [phone] Danielle Powell, UMM - CNM [address] [place] [address] [address] [place] [address] yearly [facility] Comment on above: yearly Start: 10-26-2023 DTaP/Tdap/Td vaccine (7 - Td or Tdap) DTaP/Tdap/Td vaccine (7 - Td or Tdap) [facility] Start: 10-09-2023 End: 10-09-2023 Patient encounter procedure 10/09/2023 11:00 AM EST Appointment [facility] Physical Therapy [address] [place], [place] [phone] Jose Luis Moran MD [address] [place], [place] [id number] Juanito Givens PTA [facility] Physical Therapy Start: 10-06-2023 End: 10-06-2023 Patient encounter procedure [facility] Physical Therapy Comment on above: 6 week follow up- ba ck pain Start: 10-02-2023 End: 10-02-2023 Patient encounter procedure 10/02/2023 11:15 AM EST Appointment [facility] Physical Therapy [address] [place] [id number] Jose Luis Moran MD [address] [place] [address] [address] [place] [address] Brittnee Christopher PTA [facility] Physical Therapy Start: 09-29-2023 End: 09-29-2023 Patient encounter procedure 09/29/2023 11:15 AM EST Appointment [facility] Physical Therapy [address] [place] [address], [place] [address] Jose Luis Moran MD [address] [facility] [address] [place] [address] Estrellita Blair PTA [facility] Physical Therapy Start: 09-25-2023 Subsequent hospital visit by physician 09/25/2023 11:15 AM EST Hospital Encounter [facility] Physical Therapy [address] [place] [address], [place] [address] Jose Luis Moran MD [address] [place] [id number] Brittnee Christopher PTA [facility] Physical Therapy Start: 09-21-2023 End: 09-21-2023 Patient encounter procedure 09/21/2023 1:15 PM EST Appointment [facility] Physical Therapy [address] [place] [address], [place] [address] Jose Luis Moran MD [address] [place] [phone] Juanito Givens PTA [facility] Physical Therapy Start: 06-12-2023 Screening for Chlamy gamal trachomatis Chlamydia/GC screen [facility] Start: 05-05-2023 Influenza vaccination B ON [facility] Start: 03-27-2023 End: 03-27-2023 Patient encounter procedure 03/27/2023 Office Visit Cardiology Jolynn Whalen PA-C [address] [place] [address] [facility] Start: 03-03-2023 End: 03-03-2023 ambulatory 03/03/2023 Visit Obstetrics and Gynecology Danielle Powell, UMM - CNM [address] [address] [facility] Start: 01-19-2023 End: 01-19-2023 Patient encounter procedure 01/19/2023 Routine Obstetrics and Gynecology Danielle Powell APRN - CNM [address] [place] [address] [facility] & [facility] Start: 01-12-2023 End: 01-12-2023 Patient encounter procedure 01/12/2023 Routine Obstetrics and Gynecology Danielle Powell APRN - CNM [address] [place] [address] [facility] & [facility] Start: 01-05-2023 End: 01-05-2023 Professional / ancillary services management 01/05/2023 Ancillary Procedure Obstetrics and Gynecology [facility] Start: 01-05-2023 End: 01-05-2023 Patient encounter procedure 01/05/2023 Routine Obstetrics and Gynecology Danielle Powell APRN - CNM [address] [place] [address] [facility] Start: 12-29-2022 End: 12-29-2022 Patient encounter procedure 12/29/2022 Routine Obstetrics and Gynecology Danielle Powell APRN - CNM [address] [place] [address] [facility] & [facility] Start: 12-22-2022 End: 12-22-2022 Patient encounter procedure 12/22/2022 Routine Obstetrics and Gynecology Danielle Powell, UMM Dailey CNM [address] [place] [address] [facility] Start: 12-08-2022 End: 12-08-2022 Patient encounter procedure 12/08/2022 Routine Obstetrics and Gynecology Danielle Powell APRN - CNM [address] [facility] [address] [place] [address] [facility] Start: 11-24-2022 End: 11-24-2022 Patient encounter procedure 11/24/2022 Routine Obstetrics and Gynecology Danielle Powell APRN - CNM [address] [facility] [address] [place] [address] [facility] Start: 11-21-2022 End: 11-21-2022 Patient encounter procedure 11/21/2022 Office Visit Cardiology Hemal Lomax MD [address] [facility], [place] [phone] [facility] [facility] Start: 11-10-2022 End: 11-10-2022 Patient encounter procedure 11/10/2022 Routine Obstetrics and Gynecology Danielle Powell APRN - CNM [address] [facility] [address] [place] [address] [facility] OBSTETRICS & GYNECOLOGY [facility] Start: 11-10-2022 End: 11-10-2022 Professional / ancillary services management 11/10/2022 Ancillary Procedure Obstetrics and Gynecology [facility] OBSTETRICS & [facility] Start: 11-03-2022 End: 11-03-2022 Patient encounter procedure 11/03/2022 Routine Obstetrics and Gynecology Danielle Powell APRN - CNM [address] [facility] [address] [place] [address] [facility] OBSTETRICS & GYNECOLOGY [facility] Start: 10-28-2022 End: 10-28-2022 Patient encounter procedure 10/28/2022 Routine Obstetrics and Gynecology Kina Hammonds, DO [address] [facility] [place] [address] [facility] OBSTETRICS & GYNECOLOGY [facility] Start: 09-02-2022 End: 09-02-2022 Patient encounter procedure 09/02/2022 Routine Obstetrics and Gynecology Danielle Powell, [employer] MANAGER - CNDrew [address] [facility] [address] [place], [place] [id number] [facility] OBSTETRICS & GYNECOLOGY [facility] Start: 09-02-2022 End: 09-02-2022 Professional / ancillary services management 09/02/2022 Ancillary Procedure Obstetrics and Gynecology [facility] OBSTETRICS [facility] Start: 08-05-2022 End: 08-05-2022 Patient encounter procedure 08/05/2022 Appointment Lab [facility] Covid Screening Start: 07-07-2022 End: 07-07-2022 Patient encounter procedure 07/07/2022 Routine Obstetrics and Gynecology Danielle Powell, [employer] MANAGER - LUCY [address] [facility] [address] [place] [address] [facility] OBST[facility] & [facility] Start: 06-05-2022 Influenza vaccination Flu vaccine (# 1) [facility] Start: 05-05-2022 Influenza vaccination Flu vaccine (# 1) [facility] Start: 2022 Screening for malign ant neoplasm of cervix Pap smear [facility] Start: 06-05-2021 Influenza vaccination Flu vaccine (# 1) [facility] [employer] Phone: Start: 2019 Hepatitis C screening Hepatitis C sc reen [facility] Start: 2017 Screening for Chlamy gamal trachomatis Chlamydia screen [facility] Start: 2016 HIV screening HIV screen [facility] Start: 2013 COVID-19 Vaccine (1) COVID-19 [facility]in [facility]: 2013 Depression Screen Depression Screen [facility] Start: 09-24-2012 HPV vaccine (2 - 2-d ose series) HPV vaccine (2 - 2-dose series) [employer] Start: 2001 COVID-19 Vaccine (#1) COVID-19 Vacci ne (#1) [employer] Start: 2001 Hepatitis B vaccine (3 of 3 - 3-dose primary series) Hepatitis B vaccine (3 of 3 - 3-dose primary series) [employer] Start: 2001 Hepatitis B vaccine (3 of 3 - 3-dose series) Hepatitis B vaccine (3 of 3 - 3-dose series) [employer] Start: 2001 Hepatitis C screening Hepatitis C sc [facility] [employer] Phone: End: 11-17-2022 Bacteria identified in Urine by Culture Urine culture Microbiology Routine One Time for 1 Occurrences starting 11/17/2022 until 11/17/2022 [employer] Phone: Comment on above: One Time for 1 Occur rences starting 11/17/2022 until 11/17/2022 End: 12-19-2022 Bacteria identified in Urine by Culture [employer] Phone: Comment on above: One Time for 1 Occur rences starting 12/19/2022 until 12/19/2022 End: 12-31-2022 Bacteria identified in Urine by Culture [employer] Phone: Comment on above: One Time for 1 Occur rences starting 12/31/2022 until 12/31/2022 End: 01-04-2023 Bacteria identified in Urine by Culture Urine culture Microbiology Routine One Time for 1 Occurrences starting 01/04/2023 until 01/04/2023 [employer] Phone: Comment on above: One Time for 1 Occur rences starting 01/04/2023 until 01/04/2023 End: 01-13-2023 Buprenophine and Metabolites, Urine [employer] Phone: Comment on above: One Time for 1 Occur rences starting 01/13/2023 until 01/13/2023 End: 06-12-2022 C.trachomatis N.gonorrhoeae DNA, Urine [employer] Phone: Comment on above: 1 Occurrences starti ng 06/12/2022 until 06/12/2022 End: 12-22-2022 Culture, Strep B Screen, Vaginal/Rectal [employer] Phone: Comment on above: 1 Occurrences starti ng 12/22/2022 until 12/22/2022 End: 08-04-2022 Culture, Throat [employer] Phone: Comment on above: 1 Occurrences starti ng 08/04/2022 until 08/04/2022 End: 06-12-2022 Culture, Urine [employer] Phone: Comment on above: 1 Occurrences starti ng 06/12/2022 until 06/12/2022 End: 10-21-2022 Culture, Urine [employer] Phone: Comment on above: 1 Occurrences starti ng 10/21/2022 until 10/21/2022 nonstress test nonst ress test OB Routine Daily until discontinued starting 11/17/2022 [employer] Phone: Comment on above: Daily until disconti nued starting 11/17/2022 nonstress test nonst ress test OB Routine Daily until discontinued starting 12/20/2022 [employer] Phone: Comment on above: Daily until disconti nued starting 12/20/2022 nonstress test nonst ress test OB Routine Daily until discontinued starting 01/01/2023 [employer] Phone: Comment on above: Daily until disconti nued starting 01/01/2023 nonstress test nonst ress test OB Routine Daily until discontinued starting 01/05/2023 [employer] Phone: Comment on above: Daily until disconti nued starting 01/05/2023 End: 06-12-2022 Hemoglobin A1c/Hemoglobin.total in Blood [employer] Phone: Comment on above: 1 Occurrences starti ng 06/12/2022 until 06/12/2022 Nonrebreather mask oxygen Nonrebreather mask oxygen Respiratory Care Routine As directed - RT (PRN) until discontinued starting 11/17/2022 [employer] Phone: Comment on above: As directed - RT (W[place] N) until discontinued starting 11/17/2022 Nonrebreather mask oxygen Nonrebreather mask oxygen Respiratory Care Routine As directed - RT (PRN) until discontinued starting 12/19/2022 [employer] Phone: Comment on above: As directed - RT ([place] N) until discontinued starting 12/19/2022 Nonrebreather mask oxygen Nonrebreather mask oxygen Respiratory Care Routine As directed - RT (PRN) until discontinued starting 12/31/2022 [employer] Phone: Comment on above: As directed - RT (W[place] N) until discontinued starting 12/31/2022 Nonrebreather mask oxygen Nonrebreather mask oxygen Respiratory Care Routine As directed - RT (PRN) until discontinued starting 01/04/2023 [employer] Phone: Comment on above: As directed - RT ([place] N) until discontinued starting 01/04/2023 End: 01-13-2023 SURGICAL PATHOLOGY REPORT SURGICAL PATHOLOGY REPORT Lab Routine Once for 1 Occurrences starting 01/13/2023 until 01/13/2023 [employer] Phone: Comment on above: Once for 1 Occurrenc es starting 01/13/2023 until 01/13/2023 End: 11-17-2022 SVE SVE Point of Care Testing Routine One Time for 1 Occurrences starting 11/17/2022 until 11/17/2022 [employer] Phone: Comment on above: One Time for 1 Occur rences starting 11/17/2022 until 11/17/2022 End: 12-19-2022 SVE SVE Point of Care Testing Routine One Time for 1 Occurrences starting 12/19/2022 until 12/19/2022 [employer] Phone: Comment on above: One Time for 1 Occur rences starting 12/19/2022 until 12/19/2022 End: 12-31-2022 SVE SVE Point of Care Testing Routine One Time for 1 Occurrences starting 12/31/2022 until 12/31/2022 [employer] Phone: Comment on above: One Time for 1 Occur rences starting 12/31/2022 until 12/31/2022 End: 01-04-2023 SVE SVE Point of Care Testing Routine One Time for 1 Occurrences starting 01/04/2023 until 01/04/2023 [employer] Work Phone: Comment on above: One Time for 1 Occur rences starting 01/04/2023 until 01/04/2023 Immunizations Immunization Date Immunization Notes Care Provider Fa aver[facility] 01-13-2023 diphtheria, tetanus toxoids and acellular pertussis vaccine, unspecified formulation Danielle Powell [facility] Work Phone: [facility] [employer] Work Phone: 01-13-2023 measles, mumps and rubella virus vaccine Danielle Powell [facility] Work Phone: [facility] [employer] [facility] Work Phone: 06-03-2018 meningococcal polysaccharide (groups A, C, Y and W-135) diphtheria toxoid conjugate vaccine (MCV4P) Ashkan Kunz [employer] - [facility] Work Phone: [facility] [employer] 2017 meningococcal ACWY vaccine, unspecified formulation Renny Lipscomb MD Work Phone: [employer] Phone: 2014 zoster vaccine, live Renny ackerman MD Work Phone: [facility] Work Phone: 10-26-2013 tetanus toxoid, redu jackelin diphtheria toxoid, and acellular pertussis vaccine, adsorbed Renny Lipscomb MD Work Phone: [facility] Work Phone: 05-26-2013 tetanus toxoid, redu jackelin diphtheria toxoid, and acellular pertussis vaccine, adsorbed [facility] Work Phone: [facility] 2012 human papilloma viru s vaccine, quadrivalent Renny Lipscomb MD Work Phone: [facility] Work Phone: 2008 tetanus toxoid, redu jackelin diphtheria toxoid, and acellular pertussis vaccine, adsorbed Renny Lipscomb MD Work Phone: [facility] Work Phone: 06-04-2006 diphtheria, tetanus toxoids and acellular pertussis vaccine, unspecified formulation [facility] Work Phone: [facility] 06-04-2006 measles, mumps, rube lla, and varicella virus vaccine Ashkan Juan [employer]NAGER - [facility] Work Phone: [facility] 06-04-2006 poliovirus vaccine, inactivated [facility] Work Phone: [facility] 2005 measles, mumps and rubella virus vaccine Renny Lipscomb MD Work Phone: [facility] Work Phone: 09-24-2002 hepatitis A vaccine, unspecified formulation Renny Lipscomb MD Work Phone: [facility] Work Phone: 04-28-2002 diphtheria, tetanus toxoids and acellular pertussis vaccine, unspecified formulation [facility] Work Phone: [facility] 04-28-2002 haemophilus influenz ae type b vaccine, conjugate unspecified formulation [facility] Work Phone: [facility] 04-28-2002 measles, mumps and rubella virus vaccine Ashkan [facility] Work Phone: [facility] 04-28-2002 poliovirus vaccine, inactivated [facility] Work Phone: [facility] 04-28-2002 varicella virus vaccine [facility] Work Phone: [facility] 2002 hepatitis A vaccine, unspecified formulation Renny Lipscomb MD Work Phone: [facility] Work Phone: 2002 measles, mumps and rubella virus vaccine Renny Lipscomb MD Work Phone: [facility] Work Phone: 2001 diphtheria, tetanus toxoids and acellular pertussis vaccine, unspecified formulation [facility] Work Phone: [facility] 2001 haemophilus influenz ae type b vaccine, PRP-T conjugate [facility] Work Phone: [facility] 2001 haemophilus influenz ae type b vaccine, PRP-T conjugate [facility] Work Phone: [facility] 2001 poliovirus vaccine, inactivated [facility] Work Phone: [facility] 2001 tetanus toxoid, redu jackelin diphtheria toxoid, and acellular pertussis vaccine, adsorbed Renny Lipscomb MD Work Phone: [facility] Work Phone: 2001 diphtheria, tetanus toxoids and acellular pertussis vaccine, unspecified formulation [facility] Work Phone: [facility] 2001 haemophilus influenz ae type b vaccine, PRP-T conjugate Ashkan Uper [employer] MANAGER - DIVISION SERVICE MANAGER Work Phone: [facility] 2001 poliovirus vaccine, inactivated Ashkan Juan [employer]ISION MANAGER - DIVISION SERVICE MANAGER Work Phone: [facility] 2001 poliovirus vaccine, unspecified formulation Renny Lipscomb MD Work Phone: [facility] Work Phone: 2001 haemophilus influenz ae type b conjugate and Hepatitis B vaccine Renny Lipscomb MD Work Phone: [facility] Work Phone: 2001 haemophilus influenz ae type b conjugate and Hepatitis B vaccine Renny Lipscomb MD Work Phone: [facility] Payers Date Payer Category Payer Unknown [id number] 2023 Private Health Insurance [id number] 2022 Private Health Insurance [id number] 2022 Unknown [id number] 2016 Unknown [id number] 2001 Unknown [id number] 2.16.8 [id number] 2001 Unknown [id number] 2.16.8 [id number] 2001 Unknown [id number] 2.16.8 [id number] 2001 Unknown [id number] 2.16.8 [id number] 2001 Unknown [id number] 2.16.8 [id number] 2001 Unknown [id number] 2.16.8 [id number] 2001 Unknown [id number] 2.16.8 [id number] 2001 Unknown [id number] 2.16.8 [id number] 2001 Unknown [id number] 2.16.8 [id number] 2001 Unknown [id number] 2.16.8 [id number] Social History Date Type Detail Facility Start: 04-20-2021 Tobacco smoking status ALIS Never sm ok [employer] Phone: Start: 04-20-2021 End: 12-16-2023 Tobacco use and exposure Never used [employer] Start: 04-20-2021 Alcohol intake 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 End: 01-03-2022 History of tobacco use Current smoker [facility] [employer] Phone: End: 01-03-2022 History of tobacco use [employer] Phone: Start: 06-12-2022 End: 09-21-2024 Alcohol intake Ex-drinker (finding) [facility] [employer] Work Phone: Start: 04-27-2022 FABIOLA NGUYEN [employer] [facility] Work Phone: Start: 08-17-2022 History SDOH Alcohol Frequency 1 [facility] [employer] Work Phone: Start: 08-17-2022 History SDOH Alcohol Std Drinks 0 [facility] [employer] Work Phone: Start: 07-12-2023 End: 03-01-2024 History of Social function [employer] [facility] [employer] Start: 07-12-2023 End: 03-01-2024 Alcohol Use Disorder Identification Test - Consumption [AUDIT-C] [facility] [employer] How often to you hav e a drink containing alcohol? Never [employer] How many standard dr inks containing alcohol do you have on a typical day? Patient does not drink [employer] Start: 12-16-2023 Tobacco smoking status NHIS Smokes t obacco daily [facility] [employer] (I/We) worried wheth er (my/our) food would run out before (I/we) got money to buy more. Never true [facility] [employer] Clinical Notes 08-17-2022 to 09-21-2024 Discharge InstructionsAttaBrittnee Abdalla PTA - 09/25/2023 11:15 AM Seema Nolan PT - 09/18/2023 1:45 PM Patience Stockton RN - 01/15/2023 12:00 PM EDTDischarge Instructions Note Date & Type Note Facility 09-21-2024 Hospital Discharg e instructions Denisse Griffin MD - 09/21/2024 10:41 PM EST Thank you for trusting us with your care today. You may use tylenol or prescribed ibuprofen as needed for pain. Do not drive while prior to machinery while taking muscle relaxants as they may cause drowsiness. Schedule follow-up with primary care in 1-4 days. If you do not have a doctor, please call the one we have provided for you. The workup completed in the ER today (including blood tests and imaging) found that your symptoms are unlikely caused by an unstable condition - although this may be the case, symptoms may change, worsen, or not improve - sometimes the cause of symptoms may take time to manifest itself and require repeat testing - if symptoms do change, worsen, or do not improve return to the ED for re-evaluation - Additionally, further testing may be needed through a follow up appointment - it is very important to follow up with a doctor for re-evaluation and possible further testing outside of the ER Return to the ER immediately with the development of any new, persistent, or worsening symptoms. Read discharge paperwork Drink plenty of fluids Take medication as prescribed The following attachments cannot be sent through Care Everywhere.Back Pain (Dominican)documented in this encounter [facility] 09-25-2023 History of Presen t illness Narrative [facility] Inpatient/Observation/Outpatien t Rehabilitation Date: 09/25/2023 Patient Name: Shamika Stratton [] Inpatient Acute/Observation [x] Outpatient : 2000 10/05/23 Plan of Care/Recert ends [x] Pt cancelled due to: [x] No Reason Given Therapist/Dishroom Attendant will attempt to see this patient, at our earliest opportunity. 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 Exercises: Exercise 1: HEP: Posture education, pressups Exercise 2: BTB rows/ext x15 ea; BlueTB paloff press x10 ea Exercise 3: PPT/PPT with marches 15x ea Exercise 4: LTR; single knee fall out; SL clamshells 15x ea Exercise 5: Bridges with focus on core and glute activation 10x Exercise 6: prone progression Exercise 7: B piriformis stretch 3 x30 Exercise 8: Standing lumbar extension at counter x10 Exercise 9: ball rollout 3x30 Exercise 10: seated ab iso 10x3 sec holds Exercise 11: PB marches/ crunches/ a/p lat rocks, x10 ea way Manual: Soft Tissue Mobilizaton: Heated thermoprobe massage to lumbar paraspinals x8min to decrease tone and pain Other: IDN with static placement of 2 3in needles to R piriformis and glut max, and 2 2in needles to lumbar paraspinals L4-5 to decrease tone and pain and promote healing response Assessment Assessment: Continued core strengthening within patient tolerance; pt with mild increase in pain during standing exercises that decreases with seated rest breaks. Initiated IDN to R piriformis, glut max and B L4-5 paraspinals to decrease tone and pain, followed by heated thermoprobe massage, patient with good tolerance. Will continue. Activity Tolerance Activity Tolerance: Patient tolerated treatment well, Patient limited by pain Patient Education Exercise technique and progession, rationale for dry needling Pt verbalized/demonstrated good understanding: [x] Yes [] No, pt required further clarification. Post Treatment Pain: 01/12 Plan Plan Frequency: 2 Plan weeks: 4 Goals (Total # of Visits to Date: 10) Short Term Goals Time Frame for Short Term Goals: 2 weeks Short Term Goal 1: Patient will be initiated with a HEP-Met Short Term Goal 2: Patient will obtain and maintain correct sitting posture without verbal cues -cont Short Term Goal 3: Patient will tolerate manual interventions and modalities to decrease pain. -MET Retail Loan Originator Assistant Goals Time Frame for Retail Loan Originator Assistant Goals : 4 weeks Retail Loan Originator Assistant Goal 1: Patient will be independent and compliant with a HEP Fpc Goal 2: Patient will improve lumbar spine ROM by 25% for ADLs and work activities. Fpc Goal 3: Patient will improve LE strength to > 4/5 in all major joints and planes for work activities. Fpc Goal 4: Patient will report decreased pain to <5/10 at worst. Fpc Goal 5: Patient will report 70% improvement in overall symptoms and function. Minutes Tracking: Time In: 1343 Time Out: 1437 Minutes: 54 Timed Code Treatment Minutes: 53 Minutes Seema Thompson PT, DPT Date: 09/18/2023 documented in this encounter [facility] 01-15-2023 History of Presen t illness Narrative Patient off unit in stable condition. Departure Mode: with mother and infant secured in car seat. Mobility at Departure: ambulatory Discharged to: private residence Time of Discharge: 12:00 Maternal discharge instructions explained to pt, pt vJojou. Department of Obstetrics and Gynecology Labor and Delivery Post Progress Note SUBJECTIVE: Patient doing well today. Patient denies needs or concerns and is requesting to go home today. OBJECTIVE: Vitals: BP 128/61 Pulse 100 Temp 98 F (36.7 C) (Oral) Resp 18 LMP 04/13/2022 SpO2 100% Unknown Patient Vitals for the past 24 hrs: BP Temp Temp src Pulse Resp SpO2 01/15/23 0033 128/61 98 F (36.7 C) Oral 100 18 -- 01/14/232005 126/78 98 F (36.7 C) Oral 92 18 -- 01/14/23 1816 123/82 98.2 F (36.8 C) Oral 96 18 100 % 01/14/23 1226 (!) 124/59 98.2 F (36.8 C) Oral 81 18 -- ABDOMEN: normal shape, position and consistency GENITAL/URINARY: External Genitalia: General appearance; normal, Hair distribution; normal, Lesions absent Uterus: Size normal Breast:normal appearance, no masses or tenderness Cor: RRR no Murmurs Pulmonary: clear to auscultation anterior and posterior Extremities: no Clubbing cyanosis or ecchymosis DATA: ASSESSMENT : Principal Problem: Term Active Problems: Normal delivery Plan: Discharge home Department of Obstetrics and Gynecology Labor and Delivery Post Progress Note SUBJECTIVE: Tearful about NB not being discharged today. OK with staying until tomorrow. Family present. OBJECTIVE: Vitals: BP (!) 124/59 Pulse 81 Temp 98.2 F (36.8 C) (Oral) Resp 18 LMP 04/13/2022 SpO2 100% Unknown Patient Vitals for the past 24 hrs: BP Temp Temp src Pulse Resp SpO2 01/14/23 1226 (!) 124/59 98.2 F (36.8 C) Oral 81 18 -- 01/14/23 0727 120/69 98 F (36.7 C) Oral 91 16 -- 01/14/23 0441 119/62 98.1 F (36.7 C) Oral 100 18 -- 01/14/23 0132 (!) 122/56 99.2 F (37.3 C) Oral 86 16 -- 01/13/23 2121 134/70 99.3 F (37.4 C) Oral 97 18 -- 01/13/23 1852 124/67 -- -- (!) 102 16 100 % 01/13/231849 -- -- -- -- -- 100 % 01/13/231844 -- -- -- -- -- 100 % 01/13/231839 -- -- -- -- -- 100 % 01/13/231836 123/74 -- -- (!) 111 16 100 % 01/13/231834 -- -- -- -- -- 100 % 01/13/231829 -- -- -- -- -- 100 % 01/13/23 1829 -- -- -- -- -- 100 % 01/13/23 1825 -- -- -- -- -- 100 % 01/13/23 1820 -- -- -- -- -- 100 % 01/13/23 1815 -- -- -- -- -- 100 % 01/13/23 1810 -- -- -- -- -- 100 % 01/13/23 1805 -- -- -- -- -- 99 % 01/13/23 1800 -- -- -- -- -- 100 % 01/13/23 1755 -- -- -- -- -- 100 % 01/13/23 175 133/61 -- -- 96 16 100 % 01/13/23 1750 -- -- -- -- -- 99 % 01/13/23 1745 -- -- -- -- -- 98 % 01/13/23 174 -- -- -- -- -- 97 % 01/13/23 173 (!) 114/55 -- -- 94 16 98 % 01/13/23 1735 -- -- -- -- -- 98 % 01/13/23 1730 -- -- -- -- -- 97 % 01/13/23 1725 -- -- -- -- -- 98 % 01/13/23 1724 122/61 -- -- 100 18 98 % 01/13/23 1720 -- -- -- -- -- 98 % 01/13/23 1715 -- -- -- -- -- 98 % 01/13/23 1710 -- -- -- -- -- 98 % 01/13/23 1706 133/81 99 F (37.2 C) Oral 98 18 98 % 01/13/23 1705 -- -- -- -- -- 97 % 01/13/23 1623 -- -- -- -- -- 99 % 01/13/23 1618 -- -- -- -- -- 99 % 01/13/23 1613 -- -- -- -- -- 97 % 01/13/23 1612 -- -- -- -- -- 97 % 01/13/23 1608 -- -- -- -- -- 98 % 01/13/23 1603 -- -- -- -- -- 98 % 01/13/23 1558 -- -- -- -- -- 98 % 01/13/23 1553 -- -- -- -- -- 98 % 01/13/23 1548 -- -- -- -- -- 97 % 01/13/23 1543 -- -- -- -- -- 97 % 01/13/23 1533 -- -- -- -- -- 97 % 01/13/23 1530 124/67 -- -- 76 16 97 % 01/13/23 1523 -- -- -- -- -- 97 % 01/13/23 1518 -- -- -- -- -- 97 % 01/13/23 1513 -- -- -- -- -- 97 % 01/13/23 1512 115/64 -- -- 85 -- 97 % 01/13/23 1508 -- -- -- -- -- 97 % 01/13/23 1503 -- -- -- -- -- 98 % 01/13/23 1500 127/68 -- -- 74 -- 98 % 01/13/23 1453 -- -- -- -- -- 97 % 01/13/23 1452 -- -- -- -- -- 97 % ABDOMEN: soft GENITAL/URINARY: External Genitalia: voiding without difficulty Uterus: FF Breast:soft Pulmonary: clear Extremities: mild miriam pedal edema, right worse than left ASSESSMENT : Principal Problem: Term Active Problems: Normal delivery Plan: Plans to go until tomorrow documented in this encounter [employer] Work Phone: 01-15-2023 [facility] maurice Stockton RN - 01/15/2023 9:39 AM EDT Follow-up with your OB doctor as specified. [facility] OB Department phone: Dr. Hedges MD Sinena Pool CNM Dr. Lucia Powell [facility] [address] [facility] [address] [place] DIET Eat a well balanced diet focusing on foods high in fiber and protein. Drink plenty of fluids especially water. To avoid constipation you may take a mild stool softener as recommended by your doctor or liquefied natural gas operator. ACTIVITY Gradually increase your activity. Resume exercise regimen only after advice by your doctor or liquefied natural gas operator. Avoid lifting anything heavier than a gallon of milk for SIX weeks. Avoid driving until your doctor or liquefied natural gas operator has given their approval. Rise slowly from a lying to sitting and then a standing position. Climb stairs one at a time. Use caution when carrying your baby up and down the stairs. NO SEXUAL Activity for 4-6 weeks or until advised by your doctor; Nothing in vagina: intercourse, tampons, or douching. Be prepared to discuss family planning at your follow-up OB visit. You may feel tired or have a lack of energy. You may continue your vitamin to replenish nutrients post delivery. Nap when baby naps to catch up on sleep. EMOTIONS You may feel bryant, sad, teary, & overwhelmed. Contact your OB provider if you feel you may be showing signs of depression, or have thoughts of harming yourself or your . If infant will not stop crying, contact another adult for help or place infant in their crib on their back and take a break. NEVER shake your . BLEEDING Vaginal bleeding will decrease in amount over the next few weeks. You will notice that as your activity increases, your flow may increase. This is your body's way of telling you, you need to take things easier and rest more often. Call your care provider if you are saturating more than one maxi pad in an hour & resting does not help. BREAST CARE Take medications as recommended by your doctor or liquefied natural gas operator for pain If you develop a warm, red, tender area on your breast or develop a fever contact your OB provider. For moms: If you become engorged, feeding may be more difficult or painful for 1-2 days. You may find it helpful to hand express some milk so that the infant can latch on more easily. While , continue to take your vitamins as directed by your doctor or liquefied natural gas operator. Refer to the booklet in the folder/binder for more information. If you feel you need more assistance or have questions, please call Cady Smith IBCLC, treasury management sales consultant, at or the OB department to schedule an appointment or phone consultation. For more FREE help, visit the Support Group on Thursday evenings at 7 pm in the OB department. For NON- moms: You may apply ice packs to your breasts over your bra for twenty minutes at a time for comfort. Avoid stimulation to your breasts, when showering allow the water to strike your back not your breasts. Wear a good fitting bra until your milk dries, such as a sports bra. JAQUAN CARE Use the jaquan-bottle after toileting until bleeding stops. Cleanse your perineum from front to back If used, stitches will dissolve in 4-6 weeks. You may use a sitz bath or soak in a clean tub as needed for comfort. Kegel exercises will help restore bladder control. SWELLING Try to keep your legs elevated when you are sitting. When lying down keep your legs elevated. When wearing stocking or socks, make sure they are not too tight. WHEN TO CALL THE DOCTOR If you have a temp of 100.6 or more. If your bleeding has increased and you are saturating a pad in an hour. Your abdomen is tender to touch. You are passing blood clots bigger than the size of a lemon. If you are experiencing extreme weakness or dizziness. If you are having flu-like symptoms such as achy muscles or joints. There is a foul smell or a green color to your vaginal bleeding. If you have pain that cannot be relieved. You have persistent burning or frequency with urination. Call if you have concerns about your well-being. You are unable to sleep, eat, or are having thoughts of harming yourself or your baby. You have swelling, bleeding, drainage, foul odor, redness, or warmth in/around your incision or stitches. You have a red, warm, tender area in your calf. documented in this encounter [facility]ITALRise[facility] Work Phone: 01-15-2023 Hospital course Narrative Images from the original note were not included. Obstetrical Discharge Form Gestational Age:39w2d Antepartum complications: none Date of Delivery: 01/13/23 Type of Delivery: Delivered By: Dirk Powell APRN CNDrew Assisted By:N/A} Baby: female Anesthesia: epidural Intrapartum complications: None Feeding method: bottle - Blood type: O POSITIVE Rubella: Rubella Antibody, IgG Date Value Ref Range Status 06/12/2022 70.4 IU/mL Final Comment: REFERENCE RANGE: <5.0 NON-REACTIVE (non-immune) 5.0 TO 9.9 EQUIVOCAL >=10.0 REACTIVE (immune) T. Pallidium, IGG: T. pallidum, IgG Date Value Ref Range Status 06/12/2022 NONREACTIVE NONREACTIVE Final Comment: T. pallidum antibodies are not detected. There is no serological evidence of infection with T. pallidum (early primary syphilis cannot be excluded). Retest in 2-4 weeks if syphilis is clinically suspect. Hepatitis B Surface Antigen: Hepatitis B Surface Ag Date Value Ref Range Status 06/12/2022 NONREACTIVE NONREACTIVE Final HIV: HIV Ag/Ab Date Value Ref Range Status 06/12/2022 NONREACTIVE NONREACTIVE Final Comment: No laboratory evidence of HIV infection. If acute HIV infection is suspected, consider testing for HIV-1 RNA. Results for orders placed or performed during the hospital encounter of 01/12/23 DRUG SCREEN MULTI URINE Result Value Ref Range Amphetamine Screen, Ur NEGATIVE NEGATIVE Barbiturate Screen, Ur NEGATIVE NEGATIVE Benzodiazepine Screen, Urine NEGATIVE NEGATIVE Cocaine Metabolite, Urine NEGATIVE NEGATIVE Methadone Screen, Urine NEGATIVE NEGATIVE Opiates, Urine NEGATIVE NEGATIVE Phencyclidine, Urine NEGATIVE NEGATIVE Cannabinoid Scrn, Ur NEGATIVE NEGATIVE Oxycodone Screen, Ur NEGATIVE NEGATIVE Fentanyl, Ur NEGATIVE NEGATIVE Buprenorphine Urine POSITIVE (A) NEGATIVE Test Information Assay provides medical screening only. The absence of expected drug(s) and/or metabolite(s) may indicate diluted or adulterated urine, limitations of testing or timing of collection. CBC auto differential Result Value Ref Range WBC 10.2 4.5 - 13.5 k/uL RBC 4.23 3.95 - 5.11 m/uL Hemoglobin 12.4 11.9 - 15.1 g/dL Hematocrit 37.2 36.3 - 47.1 % MCV 87.9 82.6 - 102.9 fL MCH 29.3 25.2 - 33.5 pg MCHC 33.3 28.4 - 34.8 g/dL RDW 13.2 11.8 - 14.4 % Platelets 261 138 - 453 k/uL MPV 10.7 8.1 - 13.5 fL NRBC Automated 0.0 0.0 per 100 WBC Seg Neutrophils 70 (H) 34 - 64 % Lymphocytes 20 (L) 25 - 45 % Monocytes 8 2 - 8 % Eosinophils % 1 1 - 4 % Basophils 0 0 - 2 % Immature Granulocytes 1 (H) 0 % Segs Absolute 7.19 1.50 - 8.10 k/uL Absolute Lymph # 1.99 1.10 - 3.70 k/uL Absolute [place] # 0.86 0.10 - 1.40 k/uL Absolute Eos # 0.06 0.00 - 0.44 k/uL Basophils Absolute <0.03 0.00 - 0.20 k/uL Absolute Immature Granulocyte 0.10 0.00 - 0.30 k/uL Hemoglobin Result Value Ref Range Hemoglobin 10.7 (L) 11.9 - 15.1 g/dL TYPE AND SCREEN Result Value Ref Range Expiration Date 01/15/2023,2359 Arm Band Number [id number] ABO/Rh O POSITIVE Antibody Screen NEGATIVE complications: none Discharge Medication: Medication List CONTINUE taking these medications * Breast Pump Misc Medela double pump - plans * Breast Pump Misc Medela double pump - plans * Breast Pump Misc Medela double pump - plans 19 PO * This list has 3 medication(s) that are the same as other medications prescribed for you. Read the directions carefully, and ask your doctor or other care provider to review them with you. STOP taking these medications ondansetron 4 MG tablet Commonly known as: ZOFRAN Admit date: 01/12/2023 7:00 PM Discharge Date: 01/15/2023 Discharged to: Home in stable condition Plan: Follow up in 6 week(s) for post visit documented in this encounter [employer] Phone: 01-05-2023 History of Presen t illness Narrative Patient discharged home. RN educated patient on signs of labor and other reasons to return to hospital. Patient counseled on how to count contractions. Patient verbalizes understanding and will follow up with Dirk Powell tomorrow in office. Updated Dr. Lee that patient has made no change and no fluid on paper bag. OK to discharge patient. Dr. Lee made aware of patient h, SVE, and contraction pattern. Patient to be rechecked in one hour from now and Dr. Lee called with results. Patient arrives to department with her mother with complaints of irregular contractions and possible rupture of membranes. Patient denies any recent sexual intercourse or bleeding. RN amnioswabs patient. Swab negative. Patient told to cough. RN saw small trickle of fluid with first cough but trickle didn't continue with continued coughing. Patient placed on paper bag and instructed to call out for large gushes. documented in this encounter [facility] [employer] Work Phone: 01-05-2023 Hospital Discharg e instructions Quyen Lee RN - 01/05/2023 12:13 AM EDT OUTPATIENT DISCHARGE Dr. Frances Bray [facility] Dr. Lucia Powell [address] [facility] [address] [place] ACTIVITY LIMITATIONS: (x )Up and about as desired and tolerated ( )Up to bathroom only ( x )Lay on either side ( )Avoid heavy lifting or exercise ( )No sex ( )No nipple stimulation ( )Complet bedrest ( )Avoid using stairs ( x )Increase fluids DRINK AT LEAST eight-8oz. Glasses of water daily. Call your Doctor if: ( x)Contractions are every 5 minutes apart (from start of one to the start of the next contraction) lasting 60 seconds for at least 1 hour, strong enough you can not walk or talk through the contraction and regular. (x )Bag of water breaks ( x )Vaginal bleeding ( x )Unusual pain occurs (x )Decreased movement ( ) labor: If you have 4 contractions in an hour Keep your scheduled follow up appointment. IN CASE OF EMERGENCY CONTACT LABOR AND DELIVERY . documented in this encounter [facility] [employer] Phone: 12-31-2022 History of Presen t illness Narrative Discharge instructions reviewed with patient. Patient verbalized understanding and denies any questions.Discharge papers signed and then given to patient. Patient discharged home from unit accompanied by patient's mother with understanding of follow up care. No signs of distress noted. Patient ambulated off of unit at 2024 documented in this encounter [facility] [employer] Phone: 12-31-2022 Hospital Discharg e instructions Chin Bernard RN - 12/31/2022 8:20 PM EDT OUTPATIENT DISCHARGE Dr. Frances Bray [facility] Dr. Lucia Powell [address] [address] [place] ACTIVITY LIMITATIONS: ( X )Up and about as desired and tolerated ( )Up to bathroom only ( X )Lay on either side ( X )Avoid heavy lifting or exercise ( )No sex ( X )No nipple stimulation ( )Complet bedrest ( X )Avoid using stairs ( X )Increase fluids DRINK AT LEAST eight-8oz. Glasses of water daily. Call your Doctor if: ( X )Contractions are every 5 minutes apart (from start of one to the start of the next contraction) lasting 60 seconds for at least 1 hour, strong enough you can not walk or talk through the contraction and regular. ( X )Bag of water breaks ( X )Vaginal bleeding ( X )Unusual pain occurs ( X )Decreased movement ( ) labor: If you have 4 contractions in an hour Keep your scheduled follow up appointment. IN CASE OF EMERGENCY CONTACT LABOR AND DELIVERY . documented in this encounter [facility] [employer] Phone: 12-20-2022 Hospital Discharg e instructions Vee Chilel RN - 12/20/2022 12:31 AM EDT OUTPATIENT DISCHARGE Dr. Frances Bray [facility] Dr. Lucia Powell [facility] [address] [facility] [address] [place] Dr Lucia Sweet [facility] [address] [facility] [id number] [phone] Rosita Angel, MSN, CHAMBER OF COMMERCE DIVISION MANAGER, CNM [facility] [address] [facility] [address] [address] [facility] [address] Danielle Azul CN [address] [place] [address] [place] [address] Estrellita Logan CN [address] [place] [address] [place] [address] [phone] ACTIVITY LIMITATIONS: ( X)Up and about as desired and tolerated ( )Up to bathroom only ( )Lay on either side ( )Avoid heavy lifting or exercise ( )No sex ( )No nipple stimulation ( )Complet bedrest ( )Avoid using stairs (X )Increase fluids DRINK AT LEAST eight-8oz. Glasses of water daily. Call your Doctor if: ( X )Contractions are every 5 minutes apart (from start of one to the start of the next contraction) lasting 60 seconds for at least 1 hour, strong enough you can not walk or talk through the contraction and regular. ( X )Bag of water breaks ( X )Vaginal bleeding ( X)Unusual pain occurs ( X)Decreased movement ( ) labor: If you have 4 contractions in an hour Keep your scheduled follow up appointment. Or call for a follow up on . IN CASE OF EMERGENCY CONTACT LABOR AND DELIVERY . documented in this encounter [facility] [employer] Phone: 11-17-2022 History of Presen t illness Narrative Patient ambulatory off unit at this time for discharge home. Discharge instructions reviewed with the patient. All questions and concerns were addressed. Unit number provided to the patient should they come up with any questions once they are home. Pt verbalizes understanding of instructions. Straightening Roll Operator called Devora Logan CNM and notified of patients arrival, contraction pattern, reactive strip, UA results and VS. Orders received to educate patient on proper hydration and discharge patient home. Pt arrives to unit via wheelchair from ED after arriving c/o contractions at 0526. Pt states she has been at work and began having contractions around 0200. Pt was rating her contractions 8/10 and sharp while at work. After resting on unit pt rates pain 4/10 and describes them as aching cramping. Pt gave urine sample and was placed on monitor. documented in this encounter [facility] [employer] Phone: 11-17-2022 Hospital Discharg e instructions Laurita Villalta RN - 11/17/2022 7:55 AM EST OUTPATIENT DISCHARGE Dr. Frances Bray [facility] Dr. Lucia Powell [facility] [address] [facility] [address] or [place] ACTIVITY LIMITATIONS: ( X )Up and about as desired and tolerated ( )Up to bathroom only ( )Lay on either side ( )Avoid heavy lifting or exercise ( X )No sex (X )No nipple stimulation ( )Complet bedrest ( )Avoid using stairs ( X)Increase fluids DRINK AT LEAST eight-8oz. Glasses of water daily. Call your Doctor if: ( )Contractions are every 5 minutes apart (from start of one to the start of the next contraction) lasting 60 seconds for at least 1 hour, strong enough you can not walk or talk through the contraction and regular. ( X )Bag of water breaks (X )Vaginal bleeding ( X)Unusual pain occurs ( X)Decreased movement ( X) labor: If you have 4 contractions in an hour Keep your scheduled follow up appointment. Or call for a follow up on . IN CASE OF EMERGENCY CONTACT LABOR AND DELIVERY . documented in this encounter [employer] Phone: 10-27-2022 History of Presen t illness Narrative Explained Holter monitor and diary. documented in this encounter [employer] Phone: 08-17-2022 Hospital Discharg e instructions Taylor Falcon DO - 08/17/2022 6:22 PM EST Take Tylenol for your pain. The antibiotics will likely start to help your discomfort in the next 1 to 2 days. Follow-up with your OB to get consent to get a dental procedure if needed. Return here with any new or worsening symptoms The following attachments cannot be sent through Care Everywhere.Tooth and Gum Pain (Dominican)Periodontal Conditions (Dominican)documented in this encounter [employer] Phone: Evaluation note Diagnosis Abrasion of finger, initial encounter- Primary documented in this encounter [employer] Phone: evaluation note* Diagnosis Encounter for supervision of normal first in first trimester Supervision of normal first Amenorrhea Absence of menstruation Positive urine test Obesity affecting in first trimester documented in this encounter [employer] Phone: evaluation note* Diagnosis Sore throat Acute pharyngitis documented in this encounter [employer] Phone: evaluation note* Diagnosis Acute nasopharyngitis Acute nasopharyngitis (common cold) documented in this encounter [employer] Phone: evaluation note* Diagnosis Pain, dental- Primary Unspecified disorder of the teeth and supporting structures documented in this encounter [employer] Phone: evaluation note* Diagnosis Abdominal cramping affecting documented in this encounter [employer] Phone: evaluation note* Diagnosis Dizziness Dizziness and giddiness documented in this encounter [employer] Phone: evaluation note* Diagnosis Uterine contractions- Primary documented in this encounter [employer] Phone: evaluation note* Diagnosis Palpitation Palpitations Dizzy Dizziness and giddiness History of syncope in childhood Tachycardia Tachycardia, unspecified 33 weeks gestation of state, incidental documented in this encounter [employer] Phone: evaluation note* Diagnosis Uterine contractions- Primary documented in this encounter [employer] Phone: evaluation note* Diagnosis 36 weeks gestation of state, incidental documented in this encounter [employer] Phone: evaluation note* Diagnosis 37 weeks gestation of - Primary state, incidental documented in this encounter [employer] Phone: evalgmxafo note* Diagnosis Abdominal cramps- Primary Abdominal pain, unspecified site documented in this encounter [employer] Phone: evaluation note* Diagnosis Term - Primary Normal delivery documented in this encounter [employer] Phone: evaluation note* Diagnosis Other fatigue documented in this encounter [employer]Evaluation note* Diagnosis Acute exacerbation of chronic low back pain- Primary documented in this encounter [facility] Dis[facility]* Instructions* Renny Lipscomb MD - 04/20/2021 Please take all medications as prescribed. Please follow up with your primary care physician by calling today, or as soon as possible, for thefirst available appointment. If you do not have a primary care physician, please contact a physician or clinic listed below today to establish care. Please return to the emergency department IMMEDIATELY if you develop uncontrolled fevers, uncontrolled vomiting, change in symptoms, worsening of symptoms, or ANY other concerns. * Attachments The following attachments cannot be sent through Care Everywhere. * Abrasions (Dominican) documented in this encounter[employer]T Phone: Advance Directives No Advanced Directives Records FoundDocuments on File Type Date Recorded Patient Lift Manager Expl anation ACP-Advance Directive ACP-Power of Sweatband Perforator Latest Code Status on File Code Status Date Activated Date Inactivated Comments Full Code 11/17/2022 5:43 AM Latest Code Status on File Code Status Date Activated Date Inactivated Comments Full Code 12/19/2022 10:38 PM Full Code 11/17/2022 5:43 AM 11/17/2022 10:32 AM Latest Code Status on File Code Status Date Activated Date Inactivated Comments Full Code 12/19/2022 10:38 PM Full Code 11/17/2022 5:43 AM 11/17/2022 10:32 AM Latest Code Status on File Code Status Date Activated Date Inactivated Comments Full Code 12/19/2022 10:38 PM 12/20/2022 3:44 AM Latest Code Status on File Code Status Date Activated Date Inactivated Comments Full Code 12/31/2022 6:17 PM Full Code 12/19/2022 10:38 PM 12/20/2022 3:44 AM Latest Code Status on File Code Status Date Activated Date Inactivated Comments Full Code 01/04/2023 9:59 PM Code Status History Code Status Date Activated Date Inactivated Comments Full Code 12/31/2022 6:17 PM 12/31/2022 10:35 PM Full Code 12/19/2022 10:38 PM 12/20/2022 3:44 AM Full Code 11/17/2022 5:43 AM 11/17/2022 10:32 AM Latest Code Status on File Code Status Date Activated Date Inactivated Comments Full Code 01/12/2023 7:20 PM 01/13/2023 6:28 PM Code Status History Code Status Date Activated Date Inactivated Comments Full Code 01/04/2023 9:59 PM 01/05/2023 2:51 AM Full Code 12/31/2022 6:17 PM 12/31/2022 10:35 PM Full Code 12/19/2022 10:38 PM 12/20/2022 3:44 AM Full Code 11/17/2022 5:43 AM 11/17/2022 10:32 AM Date Activated Date Inactivated Comments 01/12/2023 7:20 PM 01/13/2023 6:28 PM Date Activated Date Inactivated Comments 01/04/2023 9:59 PM 01/05/2023 2:51 AM Date Activated Date Inactivated Comments 12/31/2022 6:17 PM 12/31/2022 10:35 PM Date Activated Date Inactivated Comments 12/19/2022 10:38 PM 12/20/2022 3:44 AM Date Activated Date Inactivated Comments 11/17/2022 5:43 AM 11/17/2022 10:32 AM Reason for Referral Specialty Diagnoses / Procedures Referred By Karey t Referred To Contact Cardiology Diagnoses Dizziness Procedures Holter monitor Danielle Powell, CHAMBER OF [employer] DIVISION MANAGER - CNM [address] [place] [address] Referral ID Status Reason Start Date Expiration Date Visits Re quested Visits Authorized [id number] Closed 10/21/2022 10/21/2023 1 1 Specialty Diagnoses / Procedures Referred By Karey t Referred To Contact Cardiology Diagnoses Palpitation Dizzy History of syncope in childhood Tachycardia 33 weeks gestation of R00.2 (ICD-10-CM) - Palpitation Procedures ECHO Complete 2D W Doppler W Color [place] ECHO TTHRC R-T 2D W/WOM-MODE COMPL SPEC&COLR D 14480 - [place] ECHO TTHRC R-T 2D W/WOM-MODE COMPL SPEC&COLR D Jolynn Whalen PA-C [address] [place] [address] Referral ID Status Reason Start Date Expiration Date Visits Re quested Visits Authorized [id number] Closed 12/12/2022 11/21/2023 1 1 Summary Purpose Family History No Family History Records Found Additional Source Comments Reason for Visit (unrecogniz ed section and content) Reason Comments Laceration left index finger la ceration, pt believes there is glass in wound Reason Comments Dental Pain Right lower, onset T hursday, was seen by dentist Thursday Specialty Diagnoses / Procedures Referred By Karey adame Referred To Contact Cardiology Diagnoses Dizziness Procedures Holter monitor Danielle Powell, UMM - [facility] [address] [place] [address] Referral ID Status Reason Start Date Expiration Date Visits Re quested Visits Authorized [id number] Closed 10/21/2022 10/21/2023 1 1 Reason Comments Contractions Pt c/o contractions that began around 0230 this morning while at work. Specialty Diagnoses / Procedures Referred By Karey t Referred To Contact Cardiology Diagnoses Palpitation Dizzy History of syncope in childhood Tachycardia 33 weeks gestation of R00.2 (ICD-10-CM) - Palpitation Procedures ECHO Complete 2D W Doppler W Color [place] ECHO TTHRC R-T 2D W/WOM-MODE COMPL SPEC&COLR D 50465 - [place] ECHO TTHRC R-T 2D W/WOM-MODE COMPL SPEC&COLR D Jolynn Whalen PA-C [address] [place] [address] Referral ID Status Reason Start Date Expiration Date Visits Re quested Visits Authorized [id number] Closed 12/12/2022 11/21/2023 1 1 Reason Comments Contractions Reason Comments Scheduled Induction Specialty Diagnoses / Procedures Referred By Karey t Referred To Contact Diagnoses Term Danielle Powell, [employer] MANAGER - CNM [address] [facility] [address] [place] [address] [facility] [address] [place] [address] Referral ID Status Reason Start Date Expiration Date Visits Re quested Visits Authorized [id number] 1 1 Reason Comments Back Pain Patient was lifting a box of clothes and felt a crack in lower part of back, now complaining of sharp pain to area. Reports chronic back pain but this feels different. Denies numbness or tingling, denies loss of bowel or bladder. Ambulatory to triage Scheduled Active and Recently Administ ered Medications (unrecognized section and content) Medication Order 04/18/2021 04/19/2021 04/20/2021 lidocaine 1 % injection 20 mL 20 mL, Intradermal, ONCE, On 04/20/21 at 0200, For 1 dose, Bottle to bedside. 0200 (Due) cujgcmffz-IWYVPSAqcde-fizzshshra (LET) topical solution 3 mL syringe Topical, ONCE, On 04/20/21 at 0130, For 1 dose, For Topical Use Only. Fpr Topical Use Only 0130 (Due) Scheduled Medication Order 08/15/2022 08/16/2022 08/17/2022 amoxicillin (AMOXIL) capsule 500 mg (COMPLETED) 500 mg, Oral, ONCE, 1 dose, On 08/17/22 at 1800, Antimicrobial Indications: Head and Neck Infection 1838 (Given - Provid er: Quyen Plascencia RN) PRN Medication Order 12/29/2022 12/30/2022 12/31/2022 acetaminophen (TYLENOL) tablet 1,000 mg 1,000 mg, Oral, EVERY 4 HOURS PRN, Starting on Thu12/31/22 at 1835, Until Discontinued, Other, pain, Maximum dose of acetaminophen is 4000 mg from all sources in 24 hours. 184 (Given - Provid er: Brayden Eugene RN) Scheduled Medication Order 01/13/2023 01/14/2023 01/15/2023 acetaminophen (TYLENOL) tablet 1,000 mg (CANCELED) 1,000 mg, Oral, EVERY 6 HOURS, First dose on Thu01/12/23 at 2000, Until Discontinued, Maximum dose of acetaminophen is 4000 mg from all sources in 24 hours. 021 (Not Given - Provider: Ciarra Ny RN - Reason: Patient/family refused)0756 (Given - Provider: Tiesha Peraza RN) benzocaine-menthol (DERMOPLAST) 20-0.5 % spray Topical, 2 TIMES DAILY, First dose on Thu01/13/23 at 2100, Apply to perineal area. Patient is capable and may self administer at bedside., 2116 (Given - Provider: Ciarra Ny RN) 075 (Canceled Entry - Provider: Tiesha Peraza RN - Comment: Patient using, at bedside)2005 (Given - Provider: Monua Dimas RN) 0900 (Due)2100 (Due) diphenhydrAMINE (BENADRYL) capsule 25 mg (CANCELED) 25 mg, Oral, EVERY 6 HOURS, First dose on Thu01/12/23 at 2030, Until Discontinued 0301 (Not Given - Provider: Ciarra Ny RN - Reason: Contraindicated - Comment: held bcause 2nd dose of cytotec not administered)0756 (Given - Provider: Tiesha Peraza RN) measles, mumps & rubella vaccine (MMR) injection 0.5 mL 0.5 mL, SubCUTAneous, PRIOR TO DISCHARGE, 1 dose, Starting on Thu01/13/23 at 1828, Until Discontinued, sodium chloride flush 0.9 % injection 5-40 mL 5-40 mL, IntraVENous, EVERY 12 HOURS SCHEDULED (2 times per day), First dose on Thu01/13/23 at 2100, Until Discontinued, For Line Patency: Peripheral IV = 5 mL; Midline or Central Line = 10 mL/lumen. If following IV push medication, administer flush at same rate as the IV push. Flush volume is determined by type of infusion therapy being given. For non-viscous solutions use: Peripheral IV = 5 mL Midline or Central Line = 10 mL/lumen For viscous solutions (i.e. blood components, parenteral nutrition, contrast media, or after obtaining blood sample) use: Peripheral IV = 10 mL Midline or Central Line = 20 mL/lumen, 2099 (Not Given - Provider: Ciarra Ny RN - Reason: Other - Comment: saline locked) 0755 (Not Given - Provider: Tiesha Peraza RN - Reason: Loss of IV access)2100 (Due) 0900 (Due)2100 (Due) lbktoyf-cpwhpr-hlnrg pertussis (BOOSTRIX) injection 0.5 mL 0.5 mL, IntraMUSCular, PRIOR TO DISCHARGE, 1 dose, Starting on Thu01/13/23 at 1828, Until Discontinued, If not previously administered during at 27-36 weeks as recommended by CDC., witch jessie-glycerin (TUCKS) pad Topical, 2 TIMES DAILY, First dose on Thu01/13/23 at 2100, Apply to perineal area. Patient is capable and may self administer at bedside., 2117 (Given - Provider: Ciarra Ny RN) 0755 (Canceled Entry - Provider: Tiesha Peraza RN - Comment: Patient using, at bedside)2004 (Given - Provider: Mouna Dimas RN) 0900 (Due)2100 (Due) Continuous Medication Order 01/13/2023 01/14/2023 01/15/2023 lactated ringers IV soln infusion (CANCELED) IntraVENous, at 125 mL/hr, CONTINUOUS, Starting on Thu01/13/23 at 0600, Labor and Delivery 0717 (New Bag - Provider: Tiesha Peraza RN)1128 (New Bag - Provider: Tiesha Peraza RN) oxytocin (PITOCIN) 30 units in 500 mL infusion (CANCELED) 1-24 mercy-units/min (1-24 mL/hr), IntraVENous, CONTINUOUS, Starting on Thu01/13/23 at 0800, Until Thu01/13/23 at 1828, Begin infusion at 1 mercy-unit/min (1 mercy-unit per min = 1 mL per hour) and increase by 2 mercy-units/min as needed, every 30 minutes, until labor is achieved. Labor is defined as contractions every 2-3 minutes with cervical changes or [place] units (MVU) greater than 200 in a 10-minute window. Maximum infusion rate: 24 mercy-unit/min. Contact provider if maximum rate does not achieve desired response. Provider may order alternative titration goal or other clinically appropriate goal of titration rate (s). If staff does not increase pitocin at ordered rate, or if pitocin is turned down or off notify provider., Labor and Delivery 0756 (New Bag - Provider: Tiesha Peraza RN)0830 (Rate/Dose Change - Provider: Tiesha Peraza RN)1045 (Rate/Dose Change - Provider: Tiesha Peraza RN)1145 (Rate/Dose Change - Provider: Tiesha Peraza RN)1440 (Rate/Dose Change - Provider: Tiesha Peraza RN) PRN Medication Order 01/13/2023 01/14/2023 01/15/2023 0.9 % sodium chloride infusion IntraVENous, at 5-250 mL/hr, PRN, if patient receiving piggyback infusions and maintenance fluids are not ordered OR KVO fluids to protect IV site / prevent frequent line interruptions/ long duration, Starting on Thu01/13/23 at 1828, For piggyback infusion, administer at same rate as piggyback for a total of 25 mL. Enter 25 mL into dose field and piggyback rate into rate field of order. If piggyback is infusing at a rate less than 100 mL/hr, enter 25 mL into dose field and 100 mL/hr into rate field of order. For KVO fluids, enter rate of 20 mL/hr or less into rate field of order., acetaminophen (TYLENOL) tablet 1,000 mg 1,000 mg, Oral, EVERY 8 HOURS PRN, Starting on Thu01/13/23 at 1828, Until Discontinued, Other, Pain (1-10), Give in addition to any other pain medication ordered at same time for any pain indication. Maximum dose of acetaminophen is 4000mg from all sources in 24 hours. Alternate ibuprofen and acetaminophen every 4 hours., butorphanol (STADOL) injection 1 mg (CANCELED) 1 mg, IntraVENous, EVERY 3 HOURS PRN, 2 doses, Starting on Thu01/12/23 at 1917, Until Thu01/13/23 at 1828, Pain, For moderate pain level 4-6, May repeat times 1 for a total of 2 mg while in labor., Labor and Delivery 1010 (Given - Provider: Tiesha Peraza RN) carboprost (HEMABATE) injection 250 mcg 250 mcg, IntraMUSCular, PRN, Starting on Thu01/12/23 at 1917, Until Discontinued, PP Bleeding, May repeat every 15 minutes up to a cumulative maximum dose of 1000 mcg, at physician's request. Not for use in patients with asthma or emphysema. carboprost (HEMABATE) injection 250 mcg 250 mcg, IntraMUSCular, PRN, Starting on Thu01/13/23 at 1828, Until Discontinued, bleeding, May repeat every 15 minutes up to a cumulative maximum dose of 1000 mcg, at physician's request., docusate sodium (COLACE) capsule 100 mg 100 mg, Oral, 2 TIMES DAILY PRN, Starting on Thu01/13/23 at 1828, Until Discontinued, Constipation, Do not crush or break., ibuprofen (ADVIL;MOTRIN) tablet 800 mg 800 mg, Oral, EVERY 8 HOURS PRN, Starting on Thu01/13/23 at 1828, Until Discontinued, Pain Mild (1-3), Once tolerating PO, discontinue Toradol and begin ibuprofen 8 hours after the final dose of Toradol. Alternate ibuprofen and acetaminophen every 4 hours., 2116 (Given - Provider: Ciarra Ny RN) 0736 (Given - Provider: Tiesha Peraza RN)1634 (Given - Provider: Saadia Marinelli LPN) 0032 (Given - Provider: Mouna Dimas RN)0823 (Given - Provider: Jadyn Stockton RN) lactated ringers bolus (CANCELED) 500 mL, IntraVENous, at 967.7 mL/hr, Administer over 31 Minutes, PRN, Intrauterine resuscitation for hypertonus, tachysystole, non-reassuring status, or as prescribed by the physician. Every hour as needed, nurse may repeat bolus., Starting on Thu01/12/23 at 1917, Labor and Delivery 0255 (New Bag - Provider: Ciarra Ny RN)0330 (Stopped - Provider: Ciarra Ny RN)0928 (Rate/Dose Change - Provider: Tiesha Peraza RN)1245 (See Alternative - Provider: Tiesha Peraza RN)1350 (See Alternative - Provider: Tiesha Peraza RN) lactated ringers bolus (CANCELED) 1,000 mL, IntraVENous, at 1,935.5 mL/hr, Administer over 31 Minutes, PRN, Give prior to epidural placement. May be repeated if a second epidural/spinal procedure is performed., Starting on Thu01/12/23 at 1917, Labor and Delivery 0255 (See Alternative - Provider: Ciarra Ny RN)0330 (See Alternative - Provider: Ciarra Ny RN)0928 (See Alternative - Provider: Tiesha Peraza RN)1245 (Rate/Dose Change - Provider: Tiesha Peraza RN)1350 (Stopped - Provider: Tiesha Peraza RN) lansinoh lanolin ointment Topical, PRN, Dry Skin, nipple discomfort, Starting on Thu01/13/23 at 1828, methylergonovine (METHERGINE) injection 200 mcg 200 mcg, IntraMUSCular, PRN, Starting on Thu01/12/23 at 1917, Until Discontinued, Bleeding, Prevention of post- hemorrhage, if not hypertensive. methylergonovine (METHERGINE) injection 200 mcg 200 mcg, IntraMUSCular, PRN, Starting on Thu01/13/23 at 1828, Until Discontinued, Bleeding, PRN for post- hemorrhage, if not hypertensive., miSOPROStol (CYTOTEC) tablet 200 mcg 200 mcg, Buccal, PRN, Starting on Thu01/13/23 at 1828, Until Discontinued, For Post- Hemorrhage, miSOPROStol (CYTOTEC) tablet 800 mcg 800 mcg, Rectal, PRN, 1 dose, Starting on Thu01/13/23 at 1828, Until Discontinued, Post- Hemorrhage, Notify Physician prior to administration., miSOPROStol (CYTOTEC) tablet 900 mcg 900 mcg, Rectal, PRN, Starting on Thu01/12/23 at 1917, Until Discontinued, Post Hemmorrhage 165 (Given - Provider: Tiesha Peraza, WARREN) ondansetron (ZOFRAN) injection 4 mg (CANCELED) 4 mg, IntraVENous, EVERY 6 HOURS PRN, Starting on Thu01/12/23 at 1917, Until Thu01/13/23 at 1828, Nausea, Labor and Delivery 181 (Given - Provider: Tiesha Peraza, WARREN) oxytocin (PITOCIN) 10 unit bolus from the bag(Linked Group 1) 999 mL/hr, IntraVENous, PRN, 1 dose, Starting on Thu01/12/23 at 1917, Until Discontinued, Bleeding, For Post Use Only. Give after delivery of placenta. Bolus for bag to infuse at 999ml/20 minutes. 1635 (Bolus from Bag - Provider: Tiesha Peraza RN) oxytocin (PITOCIN) 30 units in 500 mL infusion(Linked Group 1) 166 mercy-units/min (166 mL/hr), IntraVENous, PRN, 1 dose, Starting on Thu01/12/23 at 1917, Until Discontinued, Bleeding, For Post Use Only. Give after delivery of placenta. Following Bolus from bag administration, reduce the rate to 166 mL/hr and administer remaining bag 1655 (Rate/Dose Change - Provider: Tiesha Peraza RN)1755 (Stopped - Provider: Tiesha Peraza RN) sodium chloride flush 0.9 % injection 5-40 mL 5-40 mL, IntraVENous, PRN, Starting on Thu01/13/23 at 1828, Until Discontinued, Line Care, After every IV line use, For Line Patency: Peripheral IV = 5 mL; Midline or Central Line = 10 mL/lumen. If following IV push medication, administer flush at same rate as the IV push. Flush volume is determined by type of infusion therapy being given. For non-viscous solutions use: Peripheral IV = 5 mL Midline or Central Line = 10 mL/lumen For viscous solutions (i.e. blood components, parenteral nutrition, contrast media, or after obtaining blood sample) use: Peripheral IV = 10 mL Midline or Central Line = 20 mL/lumen, Linked Groups Order Group 1: oxytocin (PITOCIN) 30 units in 500 mL infusionJump to med 166 mercy-units/min (166 mL/hr), IntraVENous, PRN, 1 dose, Starting on Thu01/12/23 at 1917, Until Discontinued, Bleeding
For Post Use Only. Give after delivery of placenta. Following Bolus from bag administration, reduce the rate to 166 mL/hr and administer remaining bag
And oxytocin (PITOCIN) 10 unit bolus from the bagJump to med 999 mL/hr, IntraVENous, PRN, 1 dose, Starting on Thu01/12/23 at 1917, Until Discontinued, Bleeding
For Post Use Only. Give after delivery of placenta. Bolus for bag to infuse at 999ml/20 minutes.
Scheduled Medication Order 09/19/2024 09/20/2024 09/21/2024 ketorolac (TORADOL) injection 60 mg (COMPLETED) 60 mg, IntraMUSCular, ONCE, 1 dose, On Thu09/21/24 at 2215, Do not administer for more than 5 days. 2220 (Given - Provid er: Kamla Cuevas RN) Care Teams (unrecognized sec tion and content) Computerized [employer] Rec[employer] Relationship Specialty Start Date End Date Marium Eller MD PCP - General 04/01/13 [employer] Relationship Specialty Start Date End Date Marium Eller MD PCP - General 04/01/13 [employer]ized [employer] Relationship Specialty Start Date End Date Marium Eller MD PCP - General 04/01/13 [employer]ized [employer] Rec[employer] Relationship Specialty Start Date End Date Marium Eller MD PCP - General 04/01/13 [employer]ized [employer] Relationship Specialty Start Date End Date Jose Luis Moran MD [address] [place] [id number] PCP - General Family Medicine 07/14/23 [employer]ized [employer] Relationship Specialty Start Date End Date Jose Luis Moran MD [address] [place] [id number] PCP - General Family Medicine 07/14/23 [employer]ized [employer] Relationship Specialty Start Date End Date Ashkan Kunz APRN - CNP [address] [place] [address] PCP - General Certified Nurse Practitioner 05/30/24 [employer] Relationship Specialty Start Date End Date Ashkan Kunz APRN - CNP [address], [place] [id number] PCP - General Certified Nurse Practitioner 05/30/24 Ordered Prescriptions (unrec ognized section and content) Prescription Sig Dispensed Refills Start Date End Da te amoxicillin (AMOXIL) 500 MG capsule Take 1 capsule by mouth 3 times daily for 7 days 21 capsule 0 08/17/2022 08/24/2022 Prescription Sig Dispensed Refills Start Date End Da te ibuprofen (ADVIL;MOTRIN) 600 MG tablet Take 1 tablet by mouth 3 times daily as needed for Pain 30 tablet 09/21/2024 cyclobenzaprine (FLEXERIL) 10 MG tablet Take 1 tablet by mouth 3 times daily as needed for Muscle spasms Do not drive or obtain a machinery while on this medication as it may cause drowsiness. 21 tablet 09/21/2024 10/01/2024 INFORMATION SOURCE (unrecogn ized section and content) DATE CREATED AUTHOR 09/25/2024 Karly muller FOR RECORDS PERTAINING TO PATIENTS WHO ARE OR HAVE BEEN ENROLLED IN A CHEMICAL DEPENDENCY/SUBSTANCEABUSE PROGRAM, SOME INFORMATION MAY BE OMITTED. This clinical summary was aggregated from multiple sources. Caution should be exercised in using it in the provision of clinical care. This summary normalizes information from multiple sources, and as a consequence, information in this document may materially change the coding, format and clinical context of patient data. In addition, data may be omitted in some cases. CLINICAL DECISIONS SHOULD BE BASED ON THE PRIMARY CLINICAL RECORDS. [facility] [employer] [facility]. provides no warranty or guarantee of the accuracy or completeness of information in this document.
--- NOTE | 2024-11-30 00:39 | ED_ITS ---
HPI - Extremity Problem General Chief complaint: Extremity Problem, Nontraumatic Stated complaint: UPPER RIGHT EXTREMITY PAIN Time Seen by Provider: 11/30/24 00:20 Source: patient Mode of arrival: walk-in Limitations: no limitations History of Present Illness HPI Narrative: cc = pain and tingling right wrist and hand Patient complains of onset of numbness and tingling along the right fourth and fifth fingers as well as some tingling in the proximal hand and pain that distributes into the hand, made worse by her work. She says that she works at [employer] and does a lot of repetitive motion with her right hand -she exhibited by twisting her right wrist in a pronation into supination and vice versa motion with some slight flexion and extension of the wrist that she most through the cycle. This occurred over the last 48 hours she has been doing a task that she does not normally do in her position at work. She has not been evaluated for this and no meds taken for this. Related Data Home Medications ?Medication ?Instructions ?Recorded ?Confirmed norgestimate 0.25 mg-ethinyl 1 tab PO DAILY 11/10/23 11/30/24 estradiol 35 mcg tablet (Sprintec (28)) sertraline 50 mg tablet 50 mg PO DAILY 11/10/23 11/24/23 Allergies Allergy/AdvReac Type Severity Reaction Status Date / Time No Known Drug Allergies Allergy Verified 11/30/24 00:22 [facility] Medical History (Updated 11/30/24 @ 00:38 by Martell Haney) Depression ?F32.A - Depression, unspecified (ICD-10) Surgical History History of tonsillectomy ?Z90.89 - Acquired absence of other organs (ICD-10) Social History Little interest or pleasure in doing things: not at all Feeling down, depressed, or hopeless: not at all Exam Narrative Exam Narrative: Nurses notes and vital signs reviewed and patient is not hypoxic. afebrile General: Well-appearing and in no apparent distress. Skin: Warm, dry, no pallor noted. No rash. Cardiovascular: Normal peripheral perfusion. Respiratory: No accessory muscle use or respiratory distress. Musculoskeletal: Right wrist = +phalen's and tinel's signs. Pain distribution along R 4th and 5th fingers with right wrist ROM. No thenar atrophy. Normal ROM fingers right hand. Unremarkable right forearm. no upper extremity edema/swelling Neurological: A&O x4. No cranial nerve dysfunction observed. No truncal ataxia. Moves all extremities. Sensation intact. Psychiatric: Cooperative and interactive. Normal mood and affect. Constitutional Vital Signs, click to edit/add: Last Vital Signs Temp 97.9 F 11/30/24 00:18 Pulse 90 11/30/24 00:18 Resp 16 11/30/24 00:18 BP 131/88 11/30/24 00:18 Pulse Ox 99 11/30/24 00:18 O2 Del Method Room Air 11/30/24 00:18 Course Vital Signs Vital signs: Vital Signs Temperature 97.9 F 11/30/24 00:18 Pulse Rate 90 11/30/24 00:18 Respiratory Rate 16 11/30/24 00:18 Blood Pressure 131/88 11/30/24 00:18 Pulse Oximetry 99 11/30/24 00:18 Oxygen Delivery Method Room Air 11/30/24 00:18 Temperature 97.9 F 11/30/24 00:18 Pulse Rate 90 11/30/24 00:18 Respiratory Rate 16 11/30/24 00:18 Blood Pressure 131/88 11/30/24 00:18 Pulse Oximetry 99 11/30/24 00:18 Oxygen Delivery Method Room Air 11/30/24 00:18 MDM - Extremity (Nontraumatic) MDM Narrative Medical decision making narrative: Pt has neuropathic symptoms - numbness and pain n right hand - consistent with repetitive use. She works at [employer] and essentially I do the same thing over and over again and showed me a twisting movement of her right hand. She and I talked about her diagnosis and progression - she was fitted with a velcro adjustable wrist splint on her right wrist. 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
[2024-11-30] MEDS: KETOROLAC TROMETHAMINE 10 MG TABLET PO (00:49)
== END 2024-11-30 00:58 | disposition home or self-care (01) ==
PROVIDERS: Emergency Provider Emergency Medicine; PCP Nurse Practitioner Family
DX: G56.11 Other lesions of median nerve, right upper limb (principal)
CPT/HCPCS: 99283